=== PATIENT | female | born 1965 | race Caucasian/White ===

== ENCOUNTER → 2016-12-30 | Outpatient (CLI) | payer OTHER | LOC: CCC 11:04 | DX: E11.9 Type 2 diabetes mellitus without complications (principal); G62.9 Polyneuropathy, unspecified | CPT/HCPCS: 36415; 82607; 83036 ==

== ENCOUNTER 2017-01-09 16:52 | Emergency (ER) | payer SELFPAY ==
[2017-01-09] MEDS ORDERED: IBUPROFEN 800 MG TABLET PO ONE (17:19)
--- NOTE | 2017-01-09 17:19 | ER Document Report ---
ED Medical Screen (RME) - General Stated Complaint: FEVER Time seen by provider: 17:17 Mode of Arrival: Ambulatory Information source: Patient Notes: 80-year-old female presents to ED for a cyst on the mons pubis about 4 days. She was seen by [facility] today and had a temperature of 103. They sent her to the emergency room. She says the pain feels like something is ripping out her thigh muscle an electric shock all over. Her temperature in the RME is 101.2. States her last Tylenol was about 11:00. I have greeted and performed a rapid initial assessment of this patient. A comprehensive ED assessment and evaluation of the patient, analysis of test results and completion of medical decision making process will be conducted by an additional ED providers. TRAVEL OUTSIDE OF THE [place] IN LAST 30 DAYS: No - Related Data Allergies/Adverse Reactions: atorvastatin calcium [From Lipitor] Allergy (Mild, Verified 16 18:17) Muscle Aches rosuvastatin calcium [From Crestor] Allergy (Mild, Verified 10/10/16 18:17) Muscle Aches adhesive [Adhesive] Allergy (Verified 10/10/16 18:17) Past Medical History - Past Medical History Cardiac Medical History: Reports: Hx Hypercholesterolemia, Hx Hypertension Pulmonary Medical History: Reports: Hx Bronchitis Denies: Hx Tuberculosis Endocrine Medical History: Reports: Hx Diabetes Mellitus Type 2, Hx Hypothyroidism Renal/ Medical History: Reports: Hx Kidney Stones GI Medical History: Reports: Hx Gastroesophageal Reflux Disease Past Surgical History: Reports: Hx Cholecystectomy, Hx Hysterectomy, Hx Nose Surgery, Hx Tonsillectomy - Immunizations Hx Diphtheria, Pertussis, Tetanus Vaccination: Yes Physical Exam - Vital signs Vitals: Temp Pulse Resp BP Pulse Ox 101.2 F H 136 H 18 144/86 H 100 01/09/17 16:58 01/09/17 16:58 01/09/17 16:58 01/09/17 16:58 01/09/17 16:58 Course - Vital Signs Vital signs: Temp Pulse Resp BP Pulse Ox 101.2 F H 136 H 18 144/86 H 100 01/09/17 16:58 01/09/17 16:58 01/09/17 16:58 01/09/17 16:58 01/09/17 16:58
[2017-01-09] MEDS ORDERED: LIDOCAINE 1% INJ-PF (10 MG/ML) 30 ML SDV INJ ONE (19:30)
--- NOTE | 2017-01-09 20:17 | ER Document Report ---
ED General - General Chief Complaint: Fever Stated Complaint: FEVER Time seen by provider: 18:30 Mode of Arrival: Ambulatory Information source: Patient Notes: 51-year-old female who reports she's had drainage from anywhere swelling on her lower abdomen for the past 4 days. She reports prior history of abscesses in other locations and thinks this may be another one. She also reports fever to 103 today. Patient was initially seen at [facility] because of her fever was referred here. The patient also reports she has history diabetes and peripheral neuropathy and was placed on gabapentin approximately 2 weeks ago. She reports she was placed on a gradually increasing dose when she began taking to gabapentin 3 times a day she began having a sensation of electric shocks in her legs which became worse the longer she took the medicine. She denies any nausea or vomiting since she's been feeling well otherwise recently. She reports she has no pain in the area of abdominal swelling because that area is been some for many years that she attributes to her diabetes. Physical Exam: General: Alert, appears well. HEENT: Normocephalic. Atraumatic. PERRLA. Extraocular movements intact. Tympanic membranes and canals clear Oropharynx clear. Neck: Supple. Non-tender. Respiratory: No respiratory distress. Clear and equal breath sounds bilaterally. Cardiovascular: Tachycardic no murmur PMI not displaced Abdominal: Normal Inspection. Soft, non-tender. No distension. Normal Bowel Sounds. Patient has a 5 x 5 cm area of erythema and swelling in the lower abdomen involving her pannus with central discoloration about 2 cm across with what appears to been some recent drainage. There is also a 1 x 2 cm area of pale tissue in the area of drainage which is soft and mobile. exam normal external female genitalia. No vaginal bleeding or discharge present. Os is closed no cervical motion tenderness. No adnexal masses or tenderness. There is no communication of the abdominal wall mass with pelvic structures Back: Non-tender. No deformity or step off. Extremities: Moves all four extremities. Upper extremities: Normal inspection. Non-tender. Normal color. Normal ROM. Normal temperature. Lower extremities: Normal inspection. Non-tender. No edema. Normal color. Normal ROM. Normal temperature. 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 Normal Mood. Skin: Warm. Dry. Normal color. TRAVEL OUTSIDE OF THE [place] IN LAST 30 DAYS: No - Related Data Allergies/Adverse Reactions: atorvastatin calcium [From Lipitor] Allergy (Mild, Verified 01/09/17 17:21) Muscle Aches rosuvastatin calcium [From Crestor] Allergy (Mild, Verified 01/09/17 17:21) Muscle Aches adhesive [Adhesive] Allergy (Verified 01/09/17 17:21) Past Medical History - General Information source: Patient - Social History Smoking Status: Never Smoker Chew tobacco use (# tins/day): No Frequency of alcohol use: None Drug Abuse: None Family History: Reviewed & Not Pertinent Patient has suicidal ideation: No Patient has homicidal ideation: No - Past Medical History Cardiac Medical History: Reports: Hx Hypercholesterolemia, Hx Hypertension Pulmonary Medical History: Reports: Hx Bronchitis Denies: Hx Tuberculosis Endocrine Medical History: Reports: Hx Diabetes Mellitus Type 2, Hx Hypothyroidism Renal/ Medical History: Reports: Hx Kidney Stones. Denies: Hx Peritoneal Dialysis GI Medical History: Reports: Hx Gastroesophageal Reflux Disease Past Surgical History: Reports: Hx Cholecystectomy, Hx Hysterectomy, Hx Nose Surgery, Hx Orthopedic Surgery - right foot, Hx Tonsillectomy - Immunizations Hx Diphtheria, Pertussis, Tetanus Vaccination: Yes Hx Pneumococcal Vaccination: 10/27/05 Review of Systems - Review of Systems Constitutional: See HPI EENT: denies: Ear pain, Throat pain Cardiovascular: denies: Chest pain, Dyspnea, Syncope Respiratory: denies: Cough, Short of breath Gastrointestinal: denies: Abdominal pain, Diarrhea, Nausea, Vomiting Genitourinary: denies: Burning, Dysuria Female Genitourinary: denies: Vaginal discharge, Vaginal bleeding Musculoskeletal: denies: Back pain, Leg swelling Skin: See HPI Hematologic/Lymphatic: See HPI Neurological/Psychological: See HPI Physical Exam - Vital signs Vitals: Temp Pulse Resp BP Pulse Ox 101.2 F H 136 H 18 144/86 H 100 01/09/17 16:58 01/09/17 16:58 01/09/17 16:58 01/09/17 16:58 01/09/17 16:58 Course - Re-evaluation Re-evalutation: 01/09/17 20:20 #1 abdominal wall abscess. This drained easily believe this is a source for fever. She was placed on antibiotics and instructed return in 2 days for recheck and probable repacking. Not able to further assess the area of palish tissue on the inferior portion of the abscess area but it does not appear to be normal skin tissue. It only further evaluation can be done in the setting of abscess treatment I believe this should be reevaluated after treatment. #2 peripheral neuropathy. Patient reports worsening symptoms on the gabapentin and of instructed her to stop that - Vital Signs Vital signs: Temp Pulse Resp BP Pulse Ox 101.2 F H 136 H 18 144/86 H 100 01/09/17 16:58 01/09/17 16:58 01/09/17 16:58 01/09/17 16:58 01/09/17 16:58 Procedures - Incision and Drainage Medial Abdomen Time completed: 20:00 Type: Complex Anesthetic type: 1% Lidocaine mL's of anesthetic: 0 - patient is numbness area and did not require anesthesia Blade size: 11 I&D procedure: Betadine prep applied, Iodoform packing placed Incision Method: Incision made by scalpel Amount/type of drainage: 20 mL Notes: 01/09/17 20:19 With gentle palpation in the area of mixed purulent and bloody drainage was identified just above the area of palish discoloration tissue. It was made in this area and copious bloody and purulent material was expressed. Abscess cavity was explored with blunt dissection and multiple loculations opened. Iodoform gauze was placed. Patient tolerated procedure well with no complications Discharge - Discharge Clinical Impression: Abscess Peripheral neuropathy Qualifiers: Peripheral neuropathy type: polyneuropathy, unspecified Qualified Code(s): G62.9 - Polyneuropathy, unspecified Condition: Stable Disposition: HOME, SELF-CARE Instructions: Post Incision and Drainage Additional Instructions: Neuropathy Your symptoms are due to neuropathy. Neuropathy is nerve damage. There are many causes, including diabetes, immune disease, alcohol, blood vessel disease, and vitamin deficiency. The usual symptoms are pain and numbness. Neuropathy can occur anywhere, but it's most likely in the "longest" nerves. That's why the feet are most often affected. Sometimes the nerve damage can heal. But if the symptoms have lasted more than a few months, the damage is permanent. To avoid further damage, treat your underlying health problems carefully. If you have diabetes, keep the blood sugar as normal as possible. Avoid alcohol. Treat high blood pressure and high cholesterol. Treating chronic pain can be a problem. Obviously, you don't want to become addicted to pain medicine. Work closely with your doctor on pain management. Your options include antiinflammatory medicine, anti seizure medicine, antidepressants, and pain clinic management. Contact the doctor if there is a significant change. Your gabapentin may be making her symptoms worse. This is unusual but you should stop taking the gabapentin and your electrical shock sensations improve Abscess You have an abscess (boil). This a pus-forming infection, usually due to staph. Some boils may be left to drain on their own, but most require lancing. From the time the tender lump first appears, it may be three or four days before the abscess is ready to kadie. Local heat and rest help at this stage of treatment. An antibiotic may prevent spread of the infection. Once the abscess is opened, packing may be placed into it. This is done so pus is not sealed inside by premature closure of the cavity. The packing will be removed at your follow-up visit or you may be advised to remove it yourself at home. Sometimes this packing must be replaced a few times during healing. The wound will heal with surprisingly little scar. Depending on the size and location of an abscess, healing can take one to four weeks. You may shower and wash the area around the incision site two or three times a day. Antibiotics may be prescribed, but are usually not necessary after an abscess has been drained. If you develop fever, chilling, worsening pain, or increasing swelling in the area, call the doctor or return immediately. Come back to the emergency department in 2 days to have your packing removed and your abscess rechecked Prescriptions: Cephalexin Monohydrate [Keflex 500 mg Capsule] 500 mg PO QID #40 capsule Sulfamethoxazole/Trimethoprim [Bactrim Ds Tablet] 1 each PO BID #20 tablet Referrals: [facility] [Provider Group] - Follow up in 1 week
[2017-01-09 20:53] VITALS: BP 90/64
== END 2017-01-09 20:50 | disposition home or self-care (01) ==
LOC: ER 16:52
PROC: 0H97XZZ Drainage of Abdomen Skin, External Approach (ICD-10-PCS; principal; 2017-01-09)
DX: L02.211 Cutaneous abscess of abdominal wall (principal); G62.9 Polyneuropathy, unspecified; R50.9 Fever, unspecified; R10.30 Lower abdominal pain, unspecified; R00.0 Tachycardia, unspecified; E78.00 Pure hypercholesterolemia, unspecified; I10 Essential (primary) hypertension; E11.9 Type 2 diabetes mellitus without complications; E03.9 Hypothyroidism, unspecified; Z87.442 Personal history of urinary calculi; Z90.49 Acquired absence of other specified parts of digestive tract; Z90.710 Acquired absence of both cervix and uterus
CPT/HCPCS: 87210; 87804; 99283; A6266

== ENCOUNTER 2017-01-11 16:56 | Inpatient (IN) | payer SELFPAY ==
[2017-01-11] MEDS ORDERED: IBUPROFEN 800 MG TABLET PO ONE (17:13)
--- NOTE | 2017-01-11 17:13 | ER Document Report ---
ED Medical Screen (RME) - General Stated Complaint: WOUND CHECK Notes: Patient is a 51-year-old female presents emergency Department after being evaluated for an abscess on January 09. Patient states that she is here today for wound recheck. has been compliant with antibiotics. Has been taking Tylenol, last dose at noon I have greeted and performed a rapid initial assessment of this patient. A comprehensive ED assessment and evaluation of the patient, analysis of test results and completion of the medical decision making process will be conducted by additional ED providers. TRAVEL OUTSIDE OF THE [place] IN LAST 30 DAYS: No - Related Data Allergies/Adverse Reactions: atorvastatin calcium [From Lipitor] Allergy (Mild, Verified 01/09/17 17:21) Muscle Aches rosuvastatin calcium [From Crestor] Allergy (Mild, Verified 01/09/17 17:21) Muscle Aches adhesive [Adhesive] Allergy (Verified 01/09/17 17:21) Past Medical History - Past Medical History Cardiac Medical History: Reports: Hx Hypercholesterolemia, Hx Hypertension Pulmonary Medical History: Reports: Hx Bronchitis Denies: Hx Tuberculosis Endocrine Medical History: Reports: Hx Diabetes Mellitus Type 2, Hx Hypothyroidism Renal/ Medical History: Reports: Hx Kidney Stones. Denies: Hx Peritoneal Dialysis GI Medical History: Reports: Hx Gastroesophageal Reflux Disease Past Surgical History: Reports: Hx Cholecystectomy, Hx Hysterectomy, Hx Nose Surgery, Hx Orthopedic Surgery - right foot, Hx Tonsillectomy - Immunizations Hx Diphtheria, Pertussis, Tetanus Vaccination: Yes Physical Exam - Vital signs Vitals: Temp Pulse Resp BP Pulse Ox 102.4 F H 126 H 18 135/75 H 96 01/11/17 16:59 01/11/17 16:59 01/11/17 16:59 01/11/17 16:59 01/11/17 16:59 Course - Vital Signs Vital signs: Temp Pulse Resp BP Pulse Ox 102.4 F H 126 H 18 135/75 H 96 01/11/17 16:59 01/11/17 16:59 01/11/17 16:59 01/11/17 16:59 01/11/17 16:59
--- NOTE | 2017-01-11 18:07 | ER Document Report ---
ED General - General Chief Complaint: Fever Stated Complaint: WOUND CHECK Mode of Arrival: Ambulatory Information source: Patient Notes: Patient presents to the emergency department for packing removal from her abdominal abscess. Patient reports she received I&D on January 09. She was placed on Keflex and Septra. Patient presents today reporting she just doesn't feel good. Reports upper abdominal pain and bilateral flank pain. Fever noted of 102.4. pt with HR of 126. Pt reports her abdomen really doesn't hurt since she's been numb in that area for 21 years since she had surgery for tubal reversal. TRAVEL OUTSIDE OF THE [place] IN LAST 30 DAYS: No - HPI Onset: Other Onset/Duration: Persistent Quality of pain: Achy Severity: Severe Pain Level: 5 Associated symptoms: Fever, Other - bilateral flank pain, upper abdominal pain Exacerbated by: Denies Relieved by: Denies Similar symptoms previously: Yes Recently seen / treated by doctor: Yes - Related Data Allergies/Adverse Reactions: atorvastatin calcium [From Lipitor] Allergy (Mild, Verified 01/11/17 17:13) Muscle Aches rosuvastatin calcium [From Crestor] Allergy (Mild, Verified 01/11/17 17:13) Muscle Aches adhesive [Adhesive] Allergy (Verified 01/11/17 17:13) Past Medical History - General Information source: Patient Last Menstrual Period: hyster - Social History Smoking Status: Current Every Day Smoker Cigarette use (# per day): Yes Chew tobacco use (# tins/day): No Frequency of alcohol use: Occasional Drug Abuse: None Family History: Reviewed & Not Pertinent Patient has suicidal ideation: No Patient has homicidal ideation: No - Past Medical History Cardiac Medical History: Reports: Hx Hypercholesterolemia, Hx Hypertension Pulmonary Medical History: Reports: Hx Bronchitis Denies: Hx Tuberculosis Endocrine Medical History: Reports: Hx Diabetes Mellitus Type 2, Hx Hypothyroidism Renal/ Medical History: Reports: Hx Kidney Stones. Denies: Hx Peritoneal Dialysis GI Medical History: Reports: Hx Gastroesophageal Reflux Disease Past Surgical History: Reports: Hx Cholecystectomy, Hx Hysterectomy, Hx Nose Surgery, Hx Orthopedic Surgery - right foot, Hx Tonsillectomy - Immunizations Hx Diphtheria, Pertussis, Tetanus Vaccination: Yes Hx Pneumococcal Vaccination: 10/27/05 Review of Systems - Review of Systems Notes: Review HPI for review of systems., All other systems negative Physical Exam - Vital signs Vitals: Temp Pulse Resp BP Pulse Ox 102.4 F H 126 H 18 135/75 H 96 01/11/17 16:59 01/11/17 16:59 01/11/17 16:59 01/11/17 16:59 01/11/17 16:59 - Notes Notes: PHYSICAL EXAMINATION: GENERAL: Well-appearing and in no acute distress nontoxic looking HEAD: Atraumatic, normocephalic. EYES: Pupils equal round , extraocular movements intact, sclera anicteric, conjunctiva are normal. ENT: nares patent, Moist mucous membranes. NECK: Normal range of motion, supple without lymphadenopathy LUNGS: CTAB and equal. No wheezes rales or rhonchi. HEART: tachy ABDOMEN: Soft, c/o upper abdominal tenderness, large abscess noted, packing removed, covered with purulent discharge, incision site open surrounded by erythema, no warmth BACK: C/O Bilateral flank pain EXTREMITIES: Normal range of motion, no pitting edema. No cyanosis. NEUROLOGICAL: Cranial nerves grossly intact. Normal sensory/motor exams. PSYCH: Normal mood, normal affect. SKIN: Warm, Dry, normal turgor, no rashes or lesions noted Course - Re-evaluation Re-evalutation: 01/11/17 19:45 a large amount of packing coated in thick discharge removed from abdomen. area with erythema, firm. Leukocytosis of 18 noted, no shift. I have consulted the attending provider dr romero per [facility] guidelines 01/11/17 20:07 Dr Kapadia is in the emergency department, was consulted, he will be be over to see the patient 01/11/17 20:31 dr kapadia in to assess patient. pt to be admitted. - Vital Signs Vital signs: Temp Pulse Resp BP Pulse Ox 99.1 F 99 18 112/69 98 01/11/17 20:12 01/11/17 20:12 01/11/17 20:12 01/11/17 20:12 01/11/17 20:12 - Laboratory Result Diagrams: 01/11/17 18:42 01/11/17 18:42 Laboratory results interpreted by me: 01/11/17 01/11/17 01/11/17 18:26 18:42 18:42 WBC 18.1 H Absolute Neutrophils 13.2 H Absolute Monocytes 1.8 H Sodium 135.0 L Chloride 95 L Glucose 266 H POC Glucose Urine Protein 100 H Urine Glucose (UA) >=500 H Urine Ketones TRACE H Urine Urobilinogen 4.0 H Ur Leukocyte Esterase TRACE H Urine Ascorbic Acid 20 H 01/11/17 20:19 WBC Absolute Neutrophils Absolute Monocytes Sodium Chloride Glucose POC Glucose 250 H Urine Protein Urine Glucose (UA) Urine Ketones Urine Urobilinogen Ur Leukocyte Esterase Urine Ascorbic Acid Discharge - Discharge Clinical Impression: Abscess Condition: Stable Disposition: ADMITTED INPATIENT Admitting Provider: Surgicalist - dr kapadia
[2017-01-11 18:47] LABS: APPEARANCE,URINE SLIGHTLY-CLOUDY; BILIRUBIN,URINE NEGATIVE (NEGATIVE); GLUCOSE, URINE >=500 mg/dL (NEGATIVE); KETONES,URINE TRACE mg/dL (NEGATIVE); LEUKOCYTE ESTERASE,URINE TRACE (NEGATIVE); NITRITE,URINE NEGATIVE (NEGATIVE); PROTEIN,URINE 100 mg/dL (NEGATIVE); URINE SPECIFIC GRAVITY 1.031
[2017-01-11 18:57] LABS: ABSOLUTE BASOPHILS # (AUTO) 0.2 10^3/uL (0.0-0.2); ABSOLUTE EOSINOPHILS # (AUTO) 0.2 10^3/uL (0.0-0.6); ABSOLUTE LYMPHOCYTES (AUTO) 2.7 10^3/uL (0.5-4.7); ABSOLUTE MONOCYTES (AUTO) 1.8 10^3/uL (0.1-1.4); ABSOLUTE NEUT (AUTO) 13.2 10^3/uL (1.7-8.2); BASOPHILS % (AUTO) 0.9 % (0-2); EOSINOPHILS % (AUTO) 1.2 % (0-6); HEMATOCRIT 36.2 % (36.0-47.0); HEMOGLOBIN 12.5 g/dL (12.0-15.5); HGB HCT DIFFERENCE 1.3; LYMPHOCYTES % (AUTO) 14.8 % (13-45); MEAN CORPUSCULAR HEMOGLOBIN 29.5 pg (27.0-33.4); MEAN CORPUSCULAR HGB CONC 34.6 g/dL (32.0-36.0); MEAN CORPUSCULAR VOLUME 85 fl (80-97); MONOCYTES % (AUTO) 10.2 % (3-13); RED BLOOD COUNT 4.24 10^6/uL (3.72-5.28); RED CELL DISTRIBUTION WIDTH 12.5 % (11.5-14.0); SEGMENTED NEUTROPHILS % (AUTO) 72.9 % (42-78); WHITE BLOOD COUNT 18.1 10^3/uL (4.0-10.5)
[2017-01-11 19:18] LABS: ALANINE AMINOTRANSFERASE 26 U/L (9-52); ALBUMIN 3.7 g/dL (3.5-5.0); ALKALINE PHOSPHATASE 123 U/L (38-126); ANION GAP 16 (5-19); ASPARTATE AMINO TRANSFERASE 15 U/L (14-36); BILIRUBIN,TOTAL 0.8 mg/dL (0.2-1.3); BLOOD UREA NITROGEN 14 mg/dL (7-20); CALCIUM 9.2 mg/dL (8.4-10.2); CARBON DIOXIDE 24 mmol/L (22-30); CHLORIDE 95 mmol/L (98-107); CREATININE RESULT 0.53 mg/dL (0.52-1.25); GLUCOSE 266 mg/dL (75-110); LIPASE 88.6 U/L (23-300); POTASSIUM 3.7 mmol/L (3.6-5.0)
[2017-01-11] MEDS ORDERED: OXYCODONE-ACETAMINOPHEN 5-325 MG TABLET PO ONE (20:07)
[2017-01-11] MEDS ORDERED: NORMAL SALINE 1000 ML 1,000 ML IV ONE (20:31)
--- NOTE | 2017-01-11 20:45 | PDOC H&P ---
History of Present Illness Patient complains of: Persisting drainage from abdominal wall wound, fever and lethargy History of Present Illness: VIRA COBURN is a 51 year old female who presents to the emergency department via ground rescue to [facility] 2 days after having I&D of an abdominal wall pannicular infection drained in the emergency department. He went home with packing which has not been changed in 48 hours. She was sent home on Keflex and Septra. She feels weak, tired, and anorectic. Her packing was removed by the nurse practitioner. Because of persisting infection in the abdominal wall, surgery was consulted and she was advised admission. Past Medical History Cardiac Medical History: Reports: Hyperlipidema, Hypertension Pulmonary Medical History: Reports: Bronchitis Denies: Tuberculosis Endocrine Medical History: Reports: Diabetes Mellitus Type 2, Hypothyroidism GI Medical History: Reports: Gastroesophageal Reflux Disease Past Surgical History Past Surgical History: Reports: Cholecystectomy, Hysterectomy, Orthopedic Surgery - right foot, Tonsillectomy, Other - I&D of pannicular abscess 48 hours ago Social History Smoking Status: Current Every Day Smoker Frequency of Alcohol Use: Rare Hx Recreational Drug Use: No Drugs: None Hx Prescription Drug Abuse: No Family History Family History: Reviewed & Not Pertinent Parental Family History Reviewed: Yes Children Family History Reviewed: Yes Sibling(s) Family History Reviewed.: Yes Medication/Allergy Home Medications: Levothyroxine Sodium [Synthroid 0.1 mg Tablet] 100 mcg PO DAILY 08/02/13 Losartan Potassium 100 mg PO DAILY 08/06/13 Insulin Regular, Human [Humulin R (Pyxis) Insulin 100 Unit/ml 3Ml] 0 unit SUBCUT BIDACBS #10 ml 11/22/15 Losartan Potassium [Cozaar 100 mg Tablet] 100 mg PO DAILY #30 tablet 11/22/15 Metformin HCl [Glucophage] 1,000 mg PO BID #60 tablet 11/22/15 NPH, Human Insulin Isophane [Humulin N (NPH) Insulin 100 unit/mL] 40 unit SUBCUT BIDACBS #1 vial 11/22/15 Lidocaine/Menthol [Lidopatch] 1 patch TP DAILY PRN #5 adh..patch 10/10/16 Methocarbamol [Robaxin 500 mg Tablet] 500 mg PO Q8HP PRN #10 tablet 10/10/16 Naproxen 500 mg PO BIDP PRN #10 tablet 10/10/16 Cephalexin Monohydrate [Keflex 500 mg Capsule] 500 mg PO QID #40 capsule Sulfamethoxazole/Trimethoprim [Bactrim Ds Tablet] 1 each PO BID #20 tablet 01/09 Allergies/Adverse Reactions: atorvastatin calcium [From Lipitor] Allergy (Mild, Verified 01/11/17 17:13) Muscle Aches rosuvastatin calcium [From Crestor] Allergy (Mild, Verified 01/11/17 17:13) Muscle Aches adhesive [Adhesive] Allergy (Verified 01/11/17 17:13) Review of Systems Constitutional: PRESENT: fever(s), headache(s) Eyes: PRESENT: visual disturbances Cardiovascular: ABSENT: chest pain, dyspnea on exertion, edema, orthropnea, palpitations Respiratory: ABSENT: cough, hemoptysis Gastrointestinal: ABSENT: abdominal pain, constipation, diarrhea, hematemesis, hematochezia, nausea, vomiting Physical Exam Vital Signs: Temp Pulse Resp BP Pulse Ox 99.1 F 99 18 112/69 98 01/11/17 20:12 01/11/17 20:12 01/11/17 20:12 01/11/17 20:12 01/11/17 20:12 Intake & Output 01/10/17 01/11/17 01/12/17 06:59 06:59 06:59 Weight 77.8 kg General appearance: PRESENT: mild distress Head exam: PRESENT: normocephalic Eye exam: PRESENT: EOMI Ear exam: PRESENT: normal external ear exam Mouth exam: PRESENT: dry mucosa Neck exam: PRESENT: full ROM Cardiovascular exam: PRESENT: RRR Pulses: PRESENT: normal carotid pulses, normal radial pulses GI/Abdominal exam: PRESENT: other - Chronic tissue, abscess incompletely drained , and cellulitis localized to the central panniculus Extremities exam: PRESENT: full ROM Musculoskeletal exam: PRESENT: full ROM Results Laboratory Results: 01/11/17 18:42 01/11/17 18:42 01/11/17 01/11/17 01/11/17 18:26 18:42 18:42 WBC 18.1 H RBC 4.24 Hgb 12.5 Hct 36.2 MCV 85 MCH 29.5 MCHC 34.6 RDW 12.5 Plt Count 370 Seg Neutrophils % 72.9 Lymphocytes % 14.8 Monocytes % 10.2 Eosinophils % 1.2 Basophils % 0.9 Absolute Neutrophils 13.2 H Absolute Lymphocytes 2.7 Absolute Monocytes 1.8 H Absolute Eosinophils 0.2 Absolute Basophils 0.2 Sodium 135.0 L Potassium 3.7 Chloride 95 L Carbon Dioxide 24 Anion Gap 16 BUN 14 Creatinine 0.53 Est GFR ( Amer) > 60 Est GFR (Non-Af Amer) > 60 Glucose 266 H Lactic Acid Calcium 9.2 Total Bilirubin 0.8 AST 15 ALT 26 Alkaline Phosphatase 123 Total Protein 7.0 Albumin 3.7 Lipase 88.6 Urine Color YELLOW Urine Appearance SLIGHTLY-CLOUDY Urine pH 5.0 Ur Specific Sherrill 1.031 Urine Protein 100 H Urine Glucose (UA) >=500 H Urine Ketones TRACE H Urine Blood NEGATIVE Urine Nitrite NEGATIVE Ur Leukocyte Esterase TRACE H Urine WBC (Auto) 5 Urine RBC (Auto) 19 01/11/17 18:42 WBC RBC Hgb Hct MCV MCH MCHC RDW Plt Count Seg Neutrophils % Lymphocytes % Monocytes % Eosinophils % Basophils % Absolute Neutrophils Absolute Lymphocytes Absolute Monocytes Absolute Eosinophils Absolute Basophils Sodium Potassium Chloride Carbon Dioxide Anion Gap BUN Creatinine Est GFR ( Amer) Est GFR (Non-Af Amer) Glucose Lactic Acid 1.3 Calcium Total Bilirubin AST ALT Alkaline Phosphatase Total Protein Albumin Lipase Urine Color Urine Appearance Urine pH Ur Specific Sherrill Urine Protein Urine Glucose (UA) Urine Ketones Urine Blood Urine Nitrite Ur Leukocyte Esterase Urine WBC (Auto) Urine RBC (Auto) Assessment & Plan - Diagnosis (1) Abscess Is this a current diagnosis for this admission?: YesPlan: Of the abdominal wall, status post I&D 48 hours ago, failed outpatient management Plan : Admit, IV fluids, antibiotics, operating room for complete drainage (2) Peripheral neuropathy Qualifiers: Peripheral neuropathy type: polyneuropathy, unspecified Qualified Code( s): G62.9 - Polyneuropathy, unspecified (3) Hyperglycemia Is this a current diagnosis for this admission?: YesPlan: Fluid resuscitation, IV insulin Will have hospitalist assisted in management (4) Sepsis Is this a current diagnosis for this admission?: YesPlan: Secondary to tachycardia, leukocytosis, and fever and very to abdominal wall infection in diabetic - Time Time Spent: 30 to 50 Minutes Critical Time spent with patient: 15-24 minutes Anticipated discharge: Home - Inpatient Certification Based on my medical assessment, after consideration of the patient's comorbidities, presenting symptoms, or acuity I expect that the services needed warrant INPATIENT care.: Yes I certify that my determination is in accordance with my understanding of Medicare's requirements for reasonable and necessary INPATIENT services [42 CFR 412.3e].: Yes Medical Necessity: Need For IV Fluids, Need for Pain Control, Need for IV Antibiotics, Need for Surgery
[2017-01-11] MEDS ORDERED: MORPHINE SULFATE 10 MG/ML INJ IV PRN (20:47)
[2017-01-11] MEDS ORDERED: ONDANSETRON HCL INJ/PF 4 MG/2 ML SDV IV PRN (20:47)
[2017-01-11] MEDS ORDERED: DEXTROSE 40% GEL 15 GM TUBE PO PRN ×2 (20:49)
[2017-01-11] MEDS ORDERED: DEXTROSE 50%-WATER 25 GM/50 ML DISP.SYRIN IV PRN ×2 (20:49)
[2017-01-11] MEDS ORDERED: GLUCAGON,HUMAN RECOMB 1 MG INJ IM PRN (20:49)
[2017-01-11] MEDS ORDERED: ERTAPENEM SODIUM 1 GM in NORMAL SALINE 50 ML IV ONE ×2 (21:15→21:30)
[2017-01-11] MEDS ORDERED: ERTAPENEM SODIUM INJ 1 GM VIAL ONE (21:42)
[2017-01-11] MEDS: NORMAL SALINE 1000 ML 1,000 ML IV PRN (21:47)
[2017-01-11] MEDS ORDERED: ERTAPENEM SODIUM INJ 1 GM VIAL IV PRN (21:53)
[2017-01-12] MEDS ORDERED: INFLUENZA ADLT QUAD (36MOS+) 2016-17 VAC 0.5 ML SYR IM PRN (00:31)
[2017-01-12] MEDS: INSULIN REG, HUMAN 100 UNIT/ML 3 ML VIAL (PYX) SUBCUT PRN ×4 (06:06→22:03)
[2017-01-12] MEDS ORDERED: EPHEDRINE SULFATE INJ 50 MG/1 ML AMPULE ONE (07:27)
[2017-01-12] MEDS ORDERED: FENTANYL CITRATE INJ/PF 100 MCG/2 ML AMPUL ONE (07:27)
[2017-01-12] MEDS ORDERED: MIDAZOLAM 2 MG/2 ML INJ ONE (07:27)
[2017-01-12] MEDS ORDERED: PROPOFOL INJ 200 MG/20 ML VIAL IV ONE (07:28)
[2017-01-12] MEDS ORDERED: OXYCODONE-ACETAMINOPHEN 5-325 MG TABLET PO PRN ×2 (08:06)
[2017-01-12] MEDS ORDERED: MORPHINE SULFATE 10 MG/ML INJ IV PRN ×2 (08:06→08:35)
[2017-01-12] MEDS ORDERED: MEPERIDINE HCL/PF INJ 25 MG/1 ML DISP.SYRIN IV PRN (08:06)
[2017-01-12] MEDS ORDERED: DIPHENHYDRAMINE HCL 50 MG/ML VIAL IV PRN (08:06)
[2017-01-12] MEDS ORDERED: PROMETHAZINE HCL INJ 25 MG/1 ML VIAL IV PRN ×2 (08:06)
[2017-01-12] MEDS ORDERED: FENTANYL CITRATE INJ/PF 100 MCG/2 ML AMPUL IV PRN ×3 (08:06)
[2017-01-12] MEDS ORDERED: ONDANSETRON HCL INJ/PF 4 MG/2 ML SDV IV PRN ×2 (08:35→08:36)
[2017-01-12] MEDS ORDERED: DOCUSATE SODIUM 100 MG CAPSULE PO PRN (08:36)
--- NOTE | 2017-01-12 08:43 | Operative Report ---
Operative Report DATE OF SURGERY: 01/12/17 PREOPERATIVE DIAGNOSIS: 1. Panniculitis with deep soft tissue infection involving subcutaneous tissue POSTOPERATIVE DIAGNOSIS: Same OPERATION: Extensive debridement of abdominal wall infection involving deep subcutaneous tissue SURGEON: KELLEY HENNING ANESTHESIA: LMAC TISSUE REMOVED OR ALTERED: Skin and subcutaneous tissue COMPLICATIONS: None ESTIMATED BLOOD LOSS: 25 mL INTRAOPERATIVE FINDINGS: See below PROCEDURE: Patient was taken to the preoperative holding area the main operating room where anesthesia was induced. She is placed supine position and abdomen exposed , prepped with Betadine. Surgical plan on surgical time out conducted. Findings are significant for a central, infraumbilical abscess involving the skin and subcutaneous tissue. The skin was actually necrotic so a 4 cm diameter complete thickness debridement of the skin was performed. We then debrided using a combination of blunt and sharp dissection as well as electrocautery an extensive amount of subcutaneous tissue going down to the fascia. This extended approximately 9-10 cm laterally to the patient's right and left as well as superiorly approximately 8 cm. Inferiorly the debridement extended proximally 4 cm. The fascia was intact. The infection was consistent with MRSA. Tissue was very woody. Hemostasis was achieved with cautery. The undermined skin flaps were viable so no further debridement of the skin was undertaken. The entire subcutaneous pocket was packed with iodoform Kerlix 1. Overlying dry 4 x 4's applied. Patient tolerated the procedure well and was taken to the recovery room in stable condition.
[2017-01-12] MEDS ORDERED: LIDOCAINE 2% INJ-PF (20 MG/ML) 10 ML AMPUL ONE (11:35)
[2017-01-12] MEDS ORDERED: KETOROLAC TROMETHAMINE 60 MG/2 ML SDV ONE (11:35)
[2017-01-12] MEDS ORDERED: ONDANSETRON HCL INJ/PF 4 MG/2 ML SDV ONE (11:35)
[2017-01-12] MEDS: OXYCODONE-ACETAMINOPHEN 5-325 MG TABLET PO PRN ×3 (12:38→22:02)
--- NOTE | 2017-01-12 13:08 | PDOC CONSULTATION ---
Consultation Consult Date: 01/12/17 Attending physician:: KELLEY HENNING Consult reason:: Management of diabetes History of Present Illness Admission Date/PCP: 01/11/17 20:45 Patient complains of: Pain in her panniculus History of Present Illness: VIRA COBURN is a 51 year old female who presented to emergency room with a panniculitis and abscess. Patient had an I&D of this and was sent home. She came back after 48 hours and she was having nausea and unable to keep medication down. The patient then underwent an I&D by general surgery without difficulty. Medicine service has been consulted for management of her diabetes. Past Medical History Cardiac Medical History: Reports: Hyperlipidema, Hypertension Pulmonary Medical History: Reports: Bronchitis Denies: Tuberculosis Endocrine Medical History: Reports: Diabetes Mellitus Type 2, Hypothyroidism Malignancy Medical History: Reports: None GI Medical History: Reports: Gastroesophageal Reflux Disease Psychiatric Medical History: Reports: None Hematology: Reports: None Past Surgical History Past Surgical History: Reports: Cholecystectomy, Hysterectomy, Orthopedic Surgery - right foot, Tonsillectomy, Other - I&D of pannicular abscess 48 hours ago Social History Information Source: Patient Smoking Status: Current Every Day Smoker Frequency of Alcohol Use: Rare Hx Recreational Drug Use: No Drugs: None Hx Prescription Drug Abuse: No - Advance Directive Resuscitation Status: Full Code Family History Family History: CVA Parental Family History Reviewed: Yes Children Family History Reviewed: No Sibling(s) Family History Reviewed.: No Medication/Allergy Home Medications: Losartan Potassium [Cozaar 100 mg Tablet] 100 mg PO DAILY #30 tablet 11/22/15 Metformin HCl [Glucophage] 1,000 mg PO BID #60 tablet 11/22/15 Cephalexin Monohydrate [Keflex 500 mg Capsule] 500 mg PO QID #40 capsule Sulfamethoxazole/Trimethoprim [Bactrim Ds Tablet] 1 each PO BID #20 tablet 01/09 Aspirin [Aspirin EC] 81 mg PO DAILY 01/12/17 Gabapentin [Neurontin 300 mg Capsule] 300 mg PO TID 01/12/17 Glipizide [Glucotrol 10 mg Tablet] 10 mg PO DAILY 01/12/17 Insulin Detemir [Levemir Flextouch] 30 unit SQ QAM 01/12/17 Insulin Detemir [Levemir Flextouch] 50 units SUBCUT QHS 01/12/17 Allergies/Adverse Reactions: atorvastatin calcium [From Lipitor] Allergy (Mild, Verified 01/11/17 17:13) Muscle Aches rosuvastatin calcium [From Crestor] Allergy (Mild, Verified 01/11/17 17:13) Muscle Aches adhesive [Adhesive] Allergy (Verified 01/11/17 17:13) Review of Systems Constitutional: PRESENT: chills, fever(s). ABSENT: weight gain, weight loss Eyes: ABSENT: visual disturbances Ears: ABSENT: hearing changes Cardiovascular: ABSENT: chest pain, dyspnea on exertion, edema, orthropnea, palpitations Respiratory: ABSENT: cough, hemoptysis Gastrointestinal: PRESENT: abdominal pain - Pain over panniculitis. ABSENT: constipation, diarrhea, hematemesis, hematochezia, nausea, vomiting Genitourinary: ABSENT: dysuria, hematuria Musculoskeletal: ABSENT: joint swelling Integumentary: PRESENT: other - Panniculitis Neurological: ABSENT: abnormal gait, abnormal speech, confusion, dizziness, focal weakness, syncope Psychiatric: ABSENT: anxiety, depression Endocrine: ABSENT: cold intolerance, heat intolerance, polydipsia, polyuria Hematologic/Lymphatic: ABSENT: easy bleeding, easy bruising Physical Exam Vital Signs: Temp Pulse Resp BP Pulse Ox 98.1 F 85 17 95/49 L 99 01/12/17 11:05 01/12/17 11:05 01/12/17 11:05 01/12/17 11:05 01/12/17 11:05 Intake & Output 01/11/17 01/12/17 01/13/17 06:59 06:59 06:59 Intake Total 1750 1050 Output Total 255 Balance 1750 795 Weight 76.8 kg General appearance: PRESENT: no acute distress, well-developed, well-nourished Head exam: PRESENT: atraumatic, normocephalic Eye exam: PRESENT: conjunctiva pink, EOMI, PERRLA. ABSENT: scleral icterus Ear exam: PRESENT: normal external ear exam Mouth exam: PRESENT: moist, tongue midline Neck exam: ABSENT: carotid bruit, JVD, lymphadenopathy, thyromegaly Respiratory exam: PRESENT: clear to auscultation david. ABSENT: rales, rhonchi, wheezes Cardiovascular exam: PRESENT: RRR. ABSENT: diastolic murmur, rubs, systolic murmur GI/Abdominal exam: PRESENT: normal bowel sounds, soft, tenderness - Tender over the panniculus. ABSENT: distended, guarding, mass, organolmegaly, rebound Rectal exam: PRESENT: deferred Extremities exam: ABSENT: calf tenderness, clubbing, pedal edema Neurological exam: PRESENT: alert, awake, oriented to person, oriented to place , oriented to time, oriented to situation, CN II-XII grossly intact. ABSENT: motor sensory deficit Psychiatric exam: PRESENT: appropriate affect Skin exam: PRESENT: other - Dressing in place over the panniculitis I&D site Assessment & Plan - Diagnosis (1) Abscess Is this a current diagnosis for this admission?: YesPlan: Has had an I&D of her pannicular abscess (2) Diabetes mellitus Is this a current diagnosis for this admission?: YesPlan: Will hold oral agents and cover with Levemir and sliding scale insulin. (3) Hypertension Is this a current diagnosis for this admission?: YesPlan: Continue with losartan (4) Hypothyroid Qualifiers: Hypothyroidism type: unspecified Qualified Code(s): E03.9 - Hypothyroidism, unspecified Is this a current diagnosis for this admission?: YesPlan: Continue with Synthroid (5) Peripheral neuropathy Qualifiers: Peripheral neuropathy type: polyneuropathy, unspecified Qualified Code( s): G62.9 - Polyneuropathy, unspecified Is this a current diagnosis for this admission?: Yes - Time Time Spent: 50 to 70 Minutes - Inpatient Certification Medical Necessity: Need Close Monitoring Due to Risk of Patient Decompensation
[2017-01-12] MEDS ORDERED: LOSARTAN POTASSIUM 50 MG TABLET PO ONE (14:00)
[2017-01-12] MEDS: ERTAPENEM SODIUM 1 GM in NORMAL SALINE 50 ML IV SCH (17:01)
[2017-01-12] MEDS: INSULIN DETEMIR 100 UNIT/ML 3 ML PEN SUBCUT SCH (22:02)
[2017-01-13] MEDS ORDERED: INSULIN DETEMIR 100 UNIT/ML 3 ML PEN SUBCUT SCH (08:00)
[2017-01-13] MEDS: INSULIN DETEMIR 100 UNIT/ML 3 ML PEN SUBCUT SCH ×2 (08:17→21:33)
[2017-01-13] MEDS: OXYCODONE-ACETAMINOPHEN 5-325 MG TABLET PO PRN ×3 (08:24→21:35)
--- NOTE | 2017-01-13 09:06 | PDOC PROGRESS REPORT ---
Subjective Progress Note for:: 01/13/17 Subjective:: No new complaints. Patient has numbness of the operative site which is chronic Physical Exam Vital Signs: Temp Pulse Resp BP Pulse Ox 100.5 F H 92 16 132/70 H 96 01/13/17 07:47 01/13/17 07:47 01/13/17 07:47 01/13/17 07:47 01/13/17 07:47 Intake & Output 01/12/17 01/13/17 01/14/17 06:59 06:59 06:59 Intake Total 1750 4225 Output Total 255 Balance 1750 3970 Weight 76.8 kg 76.8 kg General appearance: PRESENT: no acute distress GI/Abdominal exam: PRESENT: other - Packing removed at bedside; tolerated well; no foul smell or active drainage. No progression of cellulitis Assessment & Plan - Diagnosis (1) Abscess Is this a current diagnosis for this admission?: YesPlan: 1. Patient is one day status post operative debridement of anterior abdominal wall, and packing. She is growing Escherichia coli. Antibiotics are appropriate; blood sugar still elevated. Plan: 1. Get patient to shower 2. Apply wound VAC, orders activated. (2) Peripheral neuropathy Qualifiers: Peripheral neuropathy type: polyneuropathy, unspecified Qualified Code( s): G62.9 - Polyneuropathy, unspecified Is this a current diagnosis for this admission?: Yes (3) Hyperglycemia Is this a current diagnosis for this admission?: Yes (4) Sepsis Is this a current diagnosis for this admission?: Yes - Time Time Spent with patient: Less than 15 minutes
[2017-01-13] MEDS: ASPIRIN 81 MG TABLET, ENT COATED PO SCH (09:45)
[2017-01-13] MEDS: LEVOTHYROXINE SODIUM 0.1 MG TABLET PO SCH (09:46)
[2017-01-13] MEDS: LOSARTAN POTASSIUM 50 MG TABLET PO SCH (09:46)
--- NOTE | 2017-01-13 11:23 | PDOC PROGRESS REPORT ---
Subjective Progress Note for:: 01/13/17 Subjective:: Patient reports pain in her abdomen after having the dressing changed. Physical Exam Vital Signs: Temp Pulse Resp BP Pulse Ox 100.5 F H 92 16 132/70 H 96 01/13/17 07:47 01/13/17 07:47 01/13/17 07:47 01/13/17 07:47 01/13/17 07:47 Intake & Output 01/12/17 01/13/17 01/14/17 06:59 06:59 06:59 Intake Total 1750 4225 Output Total 255 Balance 1750 3970 Weight 76.8 kg 76.8 kg General appearance: PRESENT: no acute distress Eye exam: PRESENT: conjunctiva pink. ABSENT: scleral icterus Ear exam: PRESENT: normal external ear exam Mouth exam: PRESENT: moist, tongue midline Neck exam: ABSENT: JVD Respiratory exam: PRESENT: clear to auscultation david. ABSENT: rales, rhonchi, wheezes Cardiovascular exam: PRESENT: RRR. ABSENT: diastolic murmur, rubs, systolic murmur GI/Abdominal exam: PRESENT: normal bowel sounds, soft, tenderness - Tenderness over her panniculitis, other - Dressing in place.. ABSENT: distended, guarding , mass, organolmegaly, rebound Extremities exam: ABSENT: calf tenderness, clubbing, pedal edema Neurological exam: PRESENT: alert, awake, oriented to person, oriented to place , oriented to time, oriented to situation, CN II-XII grossly intact. ABSENT: motor sensory deficit Psychiatric exam: PRESENT: appropriate affect Skin exam: PRESENT: other - Dressing in place over her panniculitis surgical wound. Assessment & Plan - Diagnosis (1) Abscess Is this a current diagnosis for this admission?: YesPlan: Has had an I&D of her pannicular abscess. Currently is on imipenem. (2) Diabetes mellitus Is this a current diagnosis for this admission?: YesPlan: Will hold oral agents and cover with Levemir and sliding scale insulin. We will increase the patient's a.m. Levemir dose from 30-40 units daily. (3) Hypertension Is this a current diagnosis for this admission?: YesPlan: Continue with losartan (4) Hypothyroid Qualifiers: Hypothyroidism type: unspecified Qualified Code(s): E03.9 - Hypothyroidism, unspecified Is this a current diagnosis for this admission?: YesPlan: Continue with Synthroid (5) Peripheral neuropathy Qualifiers: Peripheral neuropathy type: polyneuropathy, unspecified Qualified Code( s): G62.9 - Polyneuropathy, unspecified Is this a current diagnosis for this admission?: Yes - Time Time Spent with patient: 25-34 minutes - Inpatient Certification Medical Necessity: Need for IV Antibiotics
[2017-01-13] MEDS: INSULIN REG, HUMAN 100 UNIT/ML 3 ML VIAL (PYX) SUBCUT PRN ×2 (13:14→17:18)
[2017-01-13] MEDS: ERTAPENEM SODIUM 1 GM in NORMAL SALINE 50 ML IV SCH (17:06)
[2017-01-13] MEDS: NORMAL SALINE 1000 ML 1,000 ML IV PRN (20:58)
[2017-01-14] MEDS: NORMAL SALINE 1000 ML 1,000 ML IV PRN ×2 (01:29→05:54)
[2017-01-14] MEDS: OXYCODONE-ACETAMINOPHEN 5-325 MG TABLET PO PRN ×4 (01:40→23:36)
[2017-01-14 05:51] LABS: MEAN CORPUSCULAR VOLUME 86 fl (80-97)
[2017-01-14 06:03] LABS: ABSOLUTE BASOPHILS # (AUTO) 0.1 10^3/uL (0.0-0.2); ABSOLUTE EOSINOPHILS # (AUTO) 0.3 10^3/uL (0.0-0.6); ABSOLUTE LYMPHOCYTES (AUTO) 1.8 10^3/uL (0.5-4.7); ABSOLUTE MONOCYTES (AUTO) 1.1 10^3/uL (0.1-1.4); ABSOLUTE NEUT (AUTO) 6.1 10^3/uL (1.7-8.2); BASOPHILS % (AUTO) 0.6 % (0-2); EOSINOPHILS % (AUTO) 3.3 % (0-6); HEMATOCRIT 28.7 % (36.0-47.0); HEMOGLOBIN 9.7 g/dL (12.0-15.5); HGB HCT DIFFERENCE 0.4; LYMPHOCYTES % (AUTO) 19.1 % (13-45); MEAN CORPUSCULAR HEMOGLOBIN 29.3 pg (27.0-33.4); MONOCYTES % (AUTO) 11.4 % (3-13); RED BLOOD COUNT 3.32 10^6/uL (3.72-5.28); RED CELL DISTRIBUTION WIDTH 12.4 % (11.5-14.0); SEGMENTED NEUTROPHILS % (AUTO) 65.6 % (42-78); WHITE BLOOD COUNT 9.3 10^3/uL (4.0-10.5)
[2017-01-14 06:11] LABS: ANION GAP 13 (5-19); BLOOD UREA NITROGEN 6 mg/dL (7-20); CALCIUM 7.9 mg/dL (8.4-10.2); CARBON DIOXIDE 20 mmol/L (22-30); CHLORIDE 110 mmol/L (98-107); CREATININE RESULT 0.32 mg/dL (0.52-1.25); GLUCOSE 87 mg/dL (75-110); POTASSIUM 3.5 mmol/L (3.6-5.0); SODIUM 143.4 mmol/L (137-145)
[2017-01-14] MEDS ORDERED: CYCLOBENZAPRINE HCL 10 MG TABLET PO PRN (08:02)
[2017-01-14] MEDS ORDERED: NORMAL SALINE 1000 ML 1,000 ML IV PRN (08:02)
--- NOTE | 2017-01-14 08:09 | PDOC PROGRESS REPORT ---
Subjective Progress Note for:: 01/14/17 Subjective:: Patient feels better overall although she states she had fever intermittently. No diarrhea. Complains of back pain and shoulder pain intermittently. No nausea or vomiting. No shortness of breath or chest pain. Physical Exam Vital Signs: Temp Pulse Resp BP Pulse Ox 97.7 F 75 17 122/66 100 01/14/17 00:17 01/14/17 00:17 01/14/17 00:17 01/14/17 00:17 01/14/17 00:17 Intake & Output 01/13/17 01/14/17 01/15/17 06:59 06:59 06:59 Intake Total 4225 5440 Output Total 255 Balance 3970 5440 Weight 76.8 kg 76.5 kg General appearance: PRESENT: no acute distress, cooperative Head exam: PRESENT: normocephalic Eye exam: PRESENT: EOMI Mouth exam: PRESENT: moist, neck supple Neck exam: ABSENT: JVD Respiratory exam: PRESENT: clear to auscultation david Cardiovascular exam: PRESENT: RRR. ABSENT: gallop GI/Abdominal exam: PRESENT: soft, other - Drain in place with some serosangenous fluid. ABSENT: distended Extremities exam: PRESENT: other - Trace lower extremity edema Neurological exam: PRESENT: alert, awake, oriented to person, oriented to place , oriented to time, oriented to situation Skin exam: PRESENT: dry, warm. ABSENT: cyanosis Results Laboratory Results: 01/14/17 05:15 01/14/17 05:15 01/14/17 01/14/17 05:15 05:15 WBC 9.3 RBC 3.32 L Hgb 9.7 L D Hct 28.7 L MCV 86 MCH 29.3 MCHC 34.0 RDW 12.4 Plt Count 312 Seg Neutrophils % 65.6 Lymphocytes % 19.1 Monocytes % 11.4 Eosinophils % 3.3 Basophils % 0.6 Absolute Neutrophils 6.1 Absolute Lymphocytes 1.8 Absolute Monocytes 1.1 Absolute Eosinophils 0.3 Absolute Basophils 0.1 Sodium 143.4 Potassium 3.5 L Chloride 110 H Carbon Dioxide 20 L Anion Gap 13 BUN 6 L Creatinine 0.32 L Est GFR ( Amer) > 60 Est GFR (Non-Af Amer) > 60 Glucose 87 Calcium 7.9 L Assessment & Plan - Diagnosis (1) Diabetes mellitus Qualifiers: Diabetes mellitus type: type 2 Diabetes mellitus complication status: with unspecified complications Diabetes mellitus director long term care insulin use: with custodial use Qualified Code(s): E11.8 - Type 2 diabetes mellitus with unspecified complications; Z79.4 - longterm (current) use of insulin Is this a current diagnosis for this admission?: Yes (2) Hypertension Qualifiers: Hypertension type: essential hypertension Qualified Code(s): I10 - Essential (primary) hypertension Is this a current diagnosis for this admission?: Yes (3) Hypothyroid Qualifiers: Hypothyroidism type: unspecified Qualified Code(s): E03.9 - Hypothyroidism, unspecified Is this a current diagnosis for this admission?: Yes (4) Hypokalemia Is this a current diagnosis for this admission?: Yes (5) Anemia Qualifiers: Anemia type: unspecified type Qualified Code(s): D64.9 - Anemia, unspecified Is this a current diagnosis for this admission?: Yes (6) Peripheral neuropathy Qualifiers: Peripheral neuropathy type: polyneuropathy, unspecified Qualified Code( s): G62.9 - Polyneuropathy, unspecified Is this a current diagnosis for this admission?: Yes (7) Abscess Is this a current diagnosis for this admission?: Yes - Time Time Spent with patient: 25-34 minutes - Plan Summary Plan Summary: Continue diabetic management. Patient reports that she's been on oral hypoglycemic and insulin at home. She has been taking Levemir and has been on insulin for more than 15 years. We will continue to monitor. We will replace potassium and recheck hemoglobin and hematocrit. We will try the patient on Flexeril for back pain. We will decrease IV fluids. Continue antibiotics and management of abscess per surgical service.
[2017-01-14] MEDS: INSULIN DETEMIR 100 UNIT/ML 3 ML PEN SUBCUT SCH ×2 (08:57→23:36)
[2017-01-14] MEDS: LEVOTHYROXINE SODIUM 0.1 MG TABLET PO SCH (10:41)
[2017-01-14] MEDS: LOSARTAN POTASSIUM 50 MG TABLET PO SCH (10:41)
[2017-01-14] MEDS: ASPIRIN 81 MG TABLET, ENT COATED PO SCH (10:42)
[2017-01-14] MEDS: POTASSIUM CHLORIDE 10 MEQ TABLET.SA PO SCH ×2 (10:43→15:51)
[2017-01-14] MEDS: ERTAPENEM SODIUM 1 GM in NORMAL SALINE 50 ML IV SCH (18:02)
--- NOTE | 2017-01-14 18:18 | PROGRESS NOTE E ---
Progress Note NAME: VIRA COBURN : 1965 AGE: 51Y DATE: 01/14/2017 ROOM: 406 SUBJECTIVE: The patient is without complaints at this time. OBJECTIVE: Blood pressure 147/74, temperature 97.4, pulse 64, respiratory rate is 18. Saturation is 100% on room air. ABDOMEN: Soft. Wound vac is in place over the site of the abdominal wall abscess drainage. ASSESSMENT: POST OP DAY #3 STAUS POST INCISION AND DRAINAGE OF ABDOMINAL WALL ABSCESS. PLAN: The patient will be discharged home tomorrow and will arrange for a wound vac to be placed at home by visiting nurses and changed Friday, Friday and Friday. DICTATING PHYSICIAN: ЕЛЕНА SMITH M.D. [id number] PHY#: [id number] ID: [id number] JOB#: [id number] ACCT: [id number] cc: >
[2017-01-15 05:39] LABS: HEMATOCRIT 32.8 % (36.0-47.0); HEMOGLOBIN 11.1 g/dL (12.0-15.5); HGB HCT DIFFERENCE 0.5; MEAN CORPUSCULAR HGB CONC 33.8 g/dL (32.0-36.0); MEAN CORPUSCULAR VOLUME 86 fl (80-97); RED BLOOD COUNT 3.82 10^6/uL (3.72-5.28); RED CELL DISTRIBUTION WIDTH 12.8 % (11.5-14.0); WHITE BLOOD COUNT 11.3 10^3/uL (4.0-10.5)
[2017-01-15] MEDS: LOSARTAN POTASSIUM 50 MG TABLET PO SCH (09:44)
[2017-01-15] MEDS: INSULIN DETEMIR 100 UNIT/ML 3 ML PEN SUBCUT SCH (09:44)
[2017-01-15] MEDS: LEVOTHYROXINE SODIUM 0.1 MG TABLET PO SCH (09:44)
[2017-01-15] MEDS: ASPIRIN 81 MG TABLET, ENT COATED PO SCH (09:44)
[2017-01-15] MEDS: OXYCODONE-ACETAMINOPHEN 5-325 MG TABLET PO PRN ×2 (12:05→18:14)
--- NOTE | 2017-01-15 13:34 | PDOC PROGRESS REPORT ---
Subjective Progress Note for:: 01/15/17 Subjective:: Patient is doing well other than intermittent discomfort and pain on the surgical site. Patient denies any diarrhea. No nausea or vomiting, no chills or fever. Patient reports taking insulin at home Levemir and likewise tablets for diabetes. Patient denies any chest pain or shortness of breath. Physical Exam Vital Signs: Temp Pulse Resp BP Pulse Ox 98.0 F 74 17 170/78 H 99 01/15/17 11:27 01/15/17 11:27 01/15/17 11:27 01/15/17 11:27 01/15/17 11:27 Intake & Output 01/14/17 01/15/17 01/16/17 06:59 06:59 06:59 Intake Total 5440 3904 Balance 5440 3904 Weight 76.5 kg 88 kg General appearance: PRESENT: no acute distress, cooperative Head exam: PRESENT: normocephalic Eye exam: PRESENT: EOMI Mouth exam: PRESENT: moist, neck supple Neck exam: ABSENT: JVD Respiratory exam: PRESENT: clear to auscultation david Cardiovascular exam: PRESENT: RRR. ABSENT: gallop GI/Abdominal exam: PRESENT: normal bowel sounds, tenderness - Mild. ABSENT: distended Extremities exam: ABSENT: pedal edema Skin exam: PRESENT: dry, warm. ABSENT: cyanosis Results Laboratory Results: 01/15/17 05:02 01/14/17 05:15 01/15/17 05:02 WBC 11.3 H RBC 3.82 Hgb 11.1 L Hct 32.8 L MCV 86 MCH 29.0 MCHC 33.8 RDW 12.8 Plt Count 417 Assessment & Plan - Diagnosis (1) Diabetes mellitus Qualifiers: Diabetes mellitus type: type 2 Diabetes mellitus complication status: with unspecified complications Diabetes mellitus continuous churn buttermaker insulin use: with fci use Qualified Code(s): E11.8 - Type 2 diabetes mellitus with unspecified complications; Z79.4 - equipment operator intermodal yard (current) use of insulin Is this a current diagnosis for this admission?: Yes (2) Hypertension Qualifiers: Hypertension type: essential hypertension Qualified Code(s): I10 - Essential (primary) hypertension Is this a current diagnosis for this admission?: Yes (3) Hypothyroid Qualifiers: Hypothyroidism type: unspecified Qualified Code(s): E03.9 - Hypothyroidism, unspecified Is this a current diagnosis for this admission?: Yes (4) Hypokalemia Is this a current diagnosis for this admission?: Yes (5) Anemia Qualifiers: Anemia type: unspecified type Qualified Code(s): D64.9 - Anemia, unspecified Is this a current diagnosis for this admission?: Yes (6) Peripheral neuropathy Qualifiers: Peripheral neuropathy type: polyneuropathy, unspecified Qualified Code( s): G62.9 - Polyneuropathy, unspecified Is this a current diagnosis for this admission?: Yes (7) Abscess Is this a current diagnosis for this admission?: Yes - Time Time Spent with patient: 25-34 minutes - Plan Summary Plan Summary: We will resume the patient's metformin and oral hypoglycemic medication. Patient being planned by surgery for discharge, and waiting for wound vacuum. Continue current diabetic treatment otherwise. On discharge patient can resume oral hypoglycemics as well as insulin. Recommend to monitor blood sugars 3 times a day and record and bring to next physician visit. Thank you so much for discharge the patient. We will sign off from the case. Please call us as needed.
--- NOTE | 2017-01-15 13:43 | DISCHARGE SUMMARY E ---
Discharge Summary NAME: VIRA COBURN : 1965 AGE: 51Y ADMITTED: 01/11/2017 DISCHARGED: 01/15/2017 DISCHARGE DIAGNOSIS: Status post incision and drainage of abdominal wall abscess. CONDITION: Stable. SUMMARY: This 51-year-old female presented to the emergency room after having an I and D of an abdominal wall panniculus infection drained in the emergency department. The patient went home with packing which has not been changed in 48 hours. Her packing was removed by the nurse in the emergency room, and because of persistent infection of the abdominal wall Surgery was consulted and she was advised admission to be taken to the operating room for debridement. The patient was taken to the operating room on 01/11/2017 where she underwent further incision and drainage and debridement of the abdominal wall abscess area. Wound VAC was applied. The patient was sent back to the floor on continued IV antibiotics. The patient did well and is without complaints and is now discharged home on Bactrim and Keflex. The patient will have wound VAC applied at home on Friday and then will have the wound VAC changed on Mondays, Wednesdays and Fridays as per Home Health. The patient will be seen in followup by Dr. Kapadia in the office. DICTATING PHYSICIAN: ЕЛЕНА SMITH M.D. [id number] PHY#: [id number] ID: [id number] JOB#: [id number] ACCT: [id number] cc:Benoit MARTE MD, M.D KYRON TAMAR, M.D. >
[2017-01-15] MEDS ORDERED: GABAPENTIN 300 MG CAPSULE PO ONE (15:00)
[2017-01-15] MEDS ORDERED: GLIPIZIDE 10 MG TABLET PO ONE (15:00)
[2017-01-15] MEDS ORDERED: METFORMIN HCL 500 MG TABLET PO SCH (17:00)
[2017-01-15 17:51] VITALS: BP 150/85
[2017-01-15] MEDS ORDERED: GABAPENTIN 300 MG CAPSULE PO SCH (22:00)
--- NOTE | 2017-01-16 00:28 | DISCHARGE SUMMARY E ---
Discharge Summary NAME: VIRA COBURN : 1965 AGE: 51Y ADMITTED: 01/11/2017 DISCHARGED: 01/15/2017 DISCHARGE DIAGNOSIS: Status post debridement, status post incision and drainage, status post wound VAC application for abdominal wall abscess. HOSPITAL COURSE: This 50-year-old female was seen by Dr. Kapadia on 12/14/2016 in the emergency room as she had been status post I and D of abdominal wall abscess in the emergency room. The patient was taken back to the operating room for further debridement of the abdominal wall abscess, which was undermining cephalad and inferiorly. The patient underwent application of a wound VAC after debridement had been done in the operating room. The patient is doing well. The patient is now discharged home and will have a wound VAC placed at home and will follow up with Dr. Kapadia next week. DICTATING PHYSICIAN: ЕЛЕНА SMITH M.D. [id number] PHY#: [id number] ID: [id number] JOB#: [id number] ACCT: [id number] cc:Benoit MARTE MD, M.D KYRON TAMAR, M.D. >
[2017-01-16] MEDS ORDERED: GLIPIZIDE 10 MG TABLET PO SCH (08:00)
== END 2017-01-15 18:32 | disposition home health service (06) | DRG 623 ==
LOC: ER 16:56 → EH 20:45 → 4N 23:00
PROVIDERS: ATTEND Surgery
PROC: 0JB80ZZ Excision of Abdomen Subcutaneous Tissue and Fascia, Open Approach (ICD-10-PCS; principal; 2017-01-12 08:00)
PROC: 3E0234Z Introduction of Serum, Toxoid and Vaccine into Muscle, Percutaneous Approach (ICD-10-PCS; 2017-01-15)
DX: E11.628 Type 2 diabetes mellitus with other skin complications (principal); L03.311 Cellulitis of abdominal wall; L02.211 Cutaneous abscess of abdominal wall; E78.00 Pure hypercholesterolemia, unspecified; E03.9 Hypothyroidism, unspecified; E11.42 Type 2 diabetes mellitus with diabetic polyneuropathy; E78.5 Hyperlipidemia, unspecified; I10 Essential (primary) hypertension; B96.20 Unspecified Escherichia coli [E. coli] as the cause of diseases classified elsewhere; E11.65 Type 2 diabetes mellitus with hyperglycemia; E65 Localized adiposity; K21.9 Gastro-esophageal reflux disease without esophagitis; D64.9 Anemia, unspecified; F17.210 Nicotine dependence, cigarettes, uncomplicated; E87.6 Hypokalemia; Z79.899 Other long term (current) drug therapy; Z88.8 Allergy status to other drugs, medicaments and biological substances; Z87.442 Personal history of urinary calculi; Z90.49 Acquired absence of other specified parts of digestive tract; Z90.710 Acquired absence of both cervix and uterus; Z79.84 Long term (current) use of oral hypoglycemic drugs; Z79.4 Long term (current) use of insulin; Z23 Encounter for immunization
CPT/HCPCS: 36415; 800; 80048; 80053; 81001; 82962; 83605; 83690; 85025; 85027; 87070; 87075; 87077; 87186; 87205; 90686; 99284; J1335; J1815; J1885; J2250; J2270; J2405; J2704; J3010; J3490; J7030

== ENCOUNTER → 2017-01-31 | Outpatient (CLI) | payer OTHER | LOC: WI 08:45 | PROVIDERS: ATTEND Family Medicine | DX: R10.11 Right upper quadrant pain (principal); N13.30 Unspecified hydronephrosis | CPT/HCPCS: 76705 ==

== ENCOUNTER 2017-05-03 15:51 | Emergency (ER) | payer OTHER ==
--- NOTE | 2017-05-03 16:48 | ER Document Report ---
ED Medical Screen (RME) - General Chief Complaint: Dizziness Stated Complaint: BODY PAIN, DIZZINESS Time Seen by Provider: 05/03/17 16:32 Mode of Arrival: Ambulatory Information source: Patient Notes: this is a 51-year-old female with a history of diabetes, DKA, skin abscesses who presents to the emergency room with a tender lump over the left proximal thigh posteriorly. Patient denies fever. She states she started oral antibiotics (Bactrim and Keflex) 5 days ago and has been doing warm pads to the area without any benefit. Patient does have a history of skin abscesses requiring drainage in the operating room several months ago. TRAVEL OUTSIDE OF THE [place] IN LAST 30 DAYS: No - Related Data Allergies/Adverse Reactions: atorvastatin calcium [From Lipitor] Allergy (Mild, Verified 05/03/17 15:53) Muscle Aches rosuvastatin calcium [From Crestor] Allergy (Mild, Verified 05/03/17 15:53) Muscle Aches adhesive [Adhesive] Allergy (Verified 05/03/17 15:53) Past Medical History - Social History Frequency of alcohol use: Rare Drug Abuse: None - Past Medical History Cardiac Medical History: Reports: Hx Hypercholesterolemia, Hx Hypertension Pulmonary Medical History: Reports: Hx Bronchitis Denies: Hx Tuberculosis Endocrine Medical History: Reports: Hx Diabetes Mellitus Type 2, Hx Hypothyroidism Renal/ Medical History: Reports: Hx Kidney Stones. Denies: Hx Peritoneal Dialysis GI Medical History: Reports: Hx Gastroesophageal Reflux Disease Past Surgical History: Reports: Hx Cholecystectomy, Hx Hysterectomy, Hx Nose Surgery, Hx Orthopedic Surgery - right foot, Hx Tonsillectomy, Other - I&D of pannicular abscess 48 hours ago - Immunizations Hx Diphtheria, Pertussis, Tetanus Vaccination: Yes Physical Exam - Vital signs Vitals: Temp Pulse Resp BP Pulse Ox 98.1 F 122 H 18 128/70 H 96 05/03/17 15:53 05/03/17 15:53 05/03/17 15:53 05/03/17 15:53 05/03/17 15:53 Course - Vital Signs Vital signs: Temp Pulse Resp BP Pulse Ox 98.1 F 122 H 18 128/70 H 96 05/03/17 15:53 05/03/17 15:53 05/03/17 15:53 05/03/17 15:53 05/03/17 15:53
[2017-05-03 17:18] LABS: ABSOLUTE BASOPHILS # (AUTO) 0.1 10^3/uL (0.0-0.2); ABSOLUTE EOSINOPHILS # (AUTO) 0.1 10^3/uL (0.0-0.6); ABSOLUTE LYMPHOCYTES (AUTO) 2.9 10^3/uL (0.5-4.7); ABSOLUTE MONOCYTES (AUTO) 1.1 10^3/uL (0.1-1.4); ABSOLUTE NEUT (AUTO) 8.2 10^3/uL (1.7-8.2); BASOPHILS % (AUTO) 0.8 % (0-2); EOSINOPHILS % (AUTO) 1.1 % (0-6); HEMATOCRIT 38.4 % (36.0-47.0); HEMOGLOBIN 12.8 g/dL (12.0-15.5); LYMPHOCYTES % (AUTO) 23.2 % (13-45); MEAN CORPUSCULAR HEMOGLOBIN 29.3 pg (27.0-33.4); MEAN CORPUSCULAR HGB CONC 33.2 g/dL (32.0-36.0); MEAN CORPUSCULAR VOLUME 88 fl (80-97); MONOCYTES % (AUTO) 8.7 % (3-13); RED BLOOD COUNT 4.36 10^6/uL (3.72-5.28); RED CELL DISTRIBUTION WIDTH 12.7 % (11.5-14.0); SEGMENTED NEUTROPHILS % (AUTO) 66.2 % (42-78); WHITE BLOOD COUNT 12.3 10^3/uL (4.0-10.5)
[2017-05-03 17:36] LABS: ALANINE AMINOTRANSFERASE 24 U/L (9-52); ALBUMIN 3.9 g/dL (3.5-5.0); ALKALINE PHOSPHATASE 108 U/L (38-126); ANION GAP 16 (5-19); ASPARTATE AMINO TRANSFERASE 15 U/L (14-36); BILIRUBIN,DIRECT 0.3 mg/dL (0.0-0.4); BILIRUBIN,TOTAL 0.5 mg/dL (0.2-1.3); BLOOD UREA NITROGEN 33 mg/dL (7-20); CALCIUM 9.1 mg/dL (8.4-10.2); CARBON DIOXIDE 20 mmol/L (22-30); CHLORIDE 98 mmol/L (98-107); CREATINE KINASE 146 U/L (30-135); CREATININE RESULT 2.18 mg/dL (0.52-1.25); GLUCOSE 379 mg/dL (75-110); POTASSIUM 5.6 mmol/L (3.6-5.0); SODIUM 133.5 mmol/L (137-145); TOTAL PROTEIN 7.5 g/dL (6.3-8.2)
[2017-05-03] MEDS ORDERED: LIDOCAINE 2%/EPINEPHRINE INJ 20 ML VIAL INJ ONE (17:37)
[2017-05-03] MEDS ORDERED: LIDOCAINE 1%/EPINEPHRINE INJ 20 ML VIAL INJ ONE (17:38)
--- NOTE | 2017-05-03 17:50 | ER Document Report ---
ED General - General Chief Complaint: Dizziness Stated Complaint: BODY PAIN, DIZZINESS Time Seen by Provider: 05/03/17 16:32 Mode of Arrival: Ambulatory Notes: 51-year-old female presents with a painful lump to her left posterior thigh for several days. Associated with swelling and redness. The redness is decreased when she started taking Bactrim and Keflex which she had left over from a previous abscess. She denies fever or chills. Denies other systemic symptoms. She has 2 days left of her Bactrim and Keflex but since the bump was not going away she decided to come in for further evaluation. TRAVEL OUTSIDE OF THE [place] IN LAST 30 DAYS: No - Related Data Allergies/Adverse Reactions: atorvastatin calcium [From Lipitor] Allergy (Mild, Verified 05/03/17 15:53) Muscle Aches rosuvastatin calcium [From Crestor] Allergy (Mild, Verified 05/03/17 15:53) Muscle Aches adhesive [Adhesive] Allergy (Verified 05/03/17 15:53) Past Medical History - General Information source: Patient - Social History Smoking Status: Current Every Day Smoker Frequency of alcohol use: Rare Drug Abuse: None Family History: CVA Patient has suicidal ideation: No Patient has homicidal ideation: No - Past Medical History Cardiac Medical History: Reports: Hx Hypercholesterolemia, Hx Hypertension Pulmonary Medical History: Reports: Hx Bronchitis Denies: Hx Tuberculosis Endocrine Medical History: Reports: Hx Diabetes Mellitus Type 2, Hx Hypothyroidism Renal/ Medical History: Reports: Hx Kidney Stones. Denies: Hx Peritoneal Dialysis GI Medical History: Reports: Hx Gastroesophageal Reflux Disease Past Surgical History: Reports: Hx Cholecystectomy, Hx Hysterectomy, Hx Nose Surgery, Hx Orthopedic Surgery - right foot, Hx Tonsillectomy, Other - I&D of pannicular abscess 48 hours ago - Immunizations Hx Diphtheria, Pertussis, Tetanus Vaccination: Yes Hx Pneumococcal Vaccination: 10/27/05 Review of Systems - Review of Systems Notes: REVIEW OF SYSTEMS GEN: Denies fever, chills, weight loss ENT: Denies sore throat, nasal discharge, ear pain EYES: Denies blurry vision, eye pain, discharge CV: Denies chest pain, palpitations, edema RESP: Denies cough, shortness of breath, wheezing GI: Denies abdominal pain, nausea, vomiting, diarrhea MSK: Denies joint pain/swelling, edema, SKIN: Abscess LYMPH: Denies swollen glands/lymph nodes NEURO: Denies headache, focal weakness or numbness, dizziness PSYCH: Denies depression, suicidal or homicidal ideation PHYSICAL EXAMINATION General: No acute distress, well-nourished Head: Atraumatic, normocephalic ENT: Mouth normal, oropharynx moist, no exudates or tonsillar enlargement Eyes: Conjunctiva normal, pupils equal, lids normal Neck: No JVD, supple, no guarding CVS: Normal rate, regular rhythm, no murmurs Resp: No resp distress, equal and normal breath sounds bilaterally GI: Nondistended, soft, no tenderness to palpation, no rebound or guarding Ext: 4 x 4 cm area of fluctuance, tenderness and erythema with minimal surrounding erythema, on the left posterior thigh t Back: No CVA or midline TTP Skin: No rash, warm Lymphatic: No lymphadeopathy noted Neuro: Awake, alert. Face symmetric. GCS 15. Physical Exam - Vital signs Vitals: Temp Pulse Resp BP Pulse Ox 98.1 F 122 H 18 128/70 H 96 05/03/17 15:53 05/03/17 15:53 05/03/17 15:53 05/03/17 15:53 05/03/17 15:53 Course - Vital Signs Vital signs: Temp Pulse Resp BP Pulse Ox 98.1 F 122 H 18 128/70 H 96 05/03/17 15:53 05/03/17 15:53 05/03/17 15:53 05/03/17 15:53 05/03/17 15:53 - Laboratory Result Diagrams: 05/03/17 17:00 05/03/17 17:00 Laboratory results interpreted by me: 05/03/17 05/03/17 17:00 17:00 WBC 12.3 H Sodium 133.5 L Potassium 5.6 H Carbon Dioxide 20 L BUN 33 H Creatinine 2.18 H Est GFR ( Amer) 29 L Est GFR (Non-Af Amer) 24 L Glucose 379 H Creatine Kinase 146 H Procedures - Incision and Drainage Left Posterior Leg Time completed: 18:13 Type: Simple Anesthetic type: 1% Lidocaine w/epi mL's of anesthetic: 2 Blade size: 11 I&D procedure: Betadine prep applied Incision Method: Incision made by scalpel Notes: Loop drainage. Prepped in the normal fashion. Stab incision made the periphery of abscess. Pus was removed, 5 cc of bloody pus. Explore for loculations broken up. Second stab incision made. A cuff of a sterile glove was looped through the 2 incisions and tied over a 10 cc syringe. It was freely mobile afterward. Consultations: None, tolerated well. Patient educated on care of loop drainage discharge instructions. Discharge - Discharge Clinical Impression: Abscess Condition: Good Disposition: HOME, SELF-CARE Instructions: Abscess ([facility]) Additional Instructions: Test was treated with a loop drainage technique to avoid re-packing and further cutting. As we discussed, please apply warm heat to the abscess 3 times per day and rotate the loop to keep the incisions open. Bloody and pus drainage is normal. This should persist for a couple of days and then stop. Once the drainage is stopped the abscess is deflated and the redness subsides you may cut the loop and remove it yourself. Please place a dressing on at this time. Return to the ER for increasing redness, increasing swelling or fever. Continue your antibiotics.
[2017-05-03 19:17] VITALS: BP 116/52
== END 2017-05-03 19:16 | disposition home or self-care (01) ==
LOC: ER 15:51
PROC: 0H9JXZZ Drainage of Left Upper Leg Skin, External Approach (ICD-10-PCS; principal; 2017-05-03)
DX: L02.416 Cutaneous abscess of left lower limb (principal); E11.9 Type 2 diabetes mellitus without complications; I10 Essential (primary) hypertension; F17.200 Nicotine dependence, unspecified, uncomplicated; Z88.8 Allergy status to other drugs, medicaments and biological substances; Z91.048 Other nonmedicinal substance allergy status
CPT/HCPCS: 10060; 99284; 36415; 82550; 85025; 80053; J3490

== ENCOUNTER → 2017-05-07 | Outpatient (CLI) | payer OTHER ==
[2017-05-07 11:05] LABS: ABSOLUTE BASOPHILS # (AUTO) 0.1 10^3/uL (0.0-0.2); ABSOLUTE EOSINOPHILS # (AUTO) 0.4 10^3/uL (0.0-0.6); ABSOLUTE LYMPHOCYTES (AUTO) 3.9 10^3/uL (0.5-4.7); ABSOLUTE MONOCYTES (AUTO) 1.1 10^3/uL (0.1-1.4); ABSOLUTE NEUT (AUTO) 7.5 10^3/uL (1.7-8.2); BASOPHILS % (AUTO) 0.9 % (0-2); HEMATOCRIT 40.4 % (36.0-47.0); HEMOGLOBIN 13.3 g/dL (12.0-15.5); HGB HCT DIFFERENCE -0.5; LYMPHOCYTES % (AUTO) 30.1 % (13-45); MEAN CORPUSCULAR HGB CONC 32.9 g/dL (32.0-36.0); MEAN CORPUSCULAR VOLUME 88 fl (80-97); MONOCYTES % (AUTO) 8.3 % (3-13); RED BLOOD COUNT 4.59 10^6/uL (3.72-5.28); RED CELL DISTRIBUTION WIDTH 12.3 % (11.5-14.0); SEGMENTED NEUTROPHILS % (AUTO) 57.7 % (42-78)
[2017-05-07 11:13] LABS: ALANINE AMINOTRANSFERASE 25 U/L (9-52); ALBUMIN 4.4 g/dL (3.5-5.0); ALKALINE PHOSPHATASE 117 U/L (38-126); ANION GAP 15 (5-19); ASPARTATE AMINO TRANSFERASE 10 U/L (14-36); BILIRUBIN,DIRECT 0.3 mg/dL (0.0-0.4); BILIRUBIN,TOTAL 0.5 mg/dL (0.2-1.3); BLOOD UREA NITROGEN 20 mg/dL (7-20); CALCIUM 9.4 mg/dL (8.4-10.2); CARBON DIOXIDE 24 mmol/L (22-30); CHLORIDE 101 mmol/L (98-107); CHOLESTEROL 224.96 mg/dL (0-200); CREATININE RESULT 0.61 mg/dL (0.52-1.25); Direct HDL 49 mg/dL (>40); GLUCOSE 203 mg/dL (75-110); POTASSIUM 5.5 mmol/L (3.6-5.0); TOTAL PROTEIN 7.9 g/dL (6.3-8.2); TRIGLYCERIDES 172 mg/dL (<150)
[2017-05-07 11:24] LABS: DIRECT LDL 145 mg/dL (<100)
[2017-05-07 11:26] LABS: VLDL CHOLESTEROL 34.4 mg/dL (10-31)
[2017-05-07 11:45] LABS: ERYTHROCYTE SEDIMENTATION RATE 45 mm/hr (0-30)
== END ==
LOC: CCC 10:16
DX: E11.22 Type 2 diabetes mellitus with diabetic chronic kidney disease (principal); I12.9 Hypertensive chronic kidney disease with stage 1 through stage 4 chronic kidney disease, or unspecified chronic kidney disease; N18.4 Chronic kidney disease, stage 4 (severe)
CPT/HCPCS: 36415; 80053; 80061; 83036; 85025; 85652

== ENCOUNTER → 2018-11-12 | Outpatient (CLI) | payer OTHER ==
[2018-11-12 08:43] LABS: ABSOLUTE BASOPHILS # (AUTO) 0.1 10^3/uL (0.0-0.2); ABSOLUTE EOSINOPHILS # (AUTO) 0.4 10^3/uL (0.0-0.6); ABSOLUTE MONOCYTES (AUTO) 0.8 10^3/uL (0.1-1.4); ABSOLUTE NEUT (AUTO) 4.8 10^3/uL (1.7-8.2); BASOPHILS % (AUTO) 0.7 % (0-2); EOSINOPHILS % (AUTO) 4.3 % (0-6); HEMATOCRIT 37.8 % (36.0-47.0); HEMOGLOBIN 12.9 g/dL (12.0-15.5); LYMPHOCYTES % (AUTO) 33.1 % (13-45); MEAN CORPUSCULAR HEMOGLOBIN 29.2 pg (27.0-33.4); MEAN CORPUSCULAR HGB CONC 34.2 g/dL (32.0-36.0); MEAN CORPUSCULAR VOLUME 86 fl (80-97); MONOCYTES % (AUTO) 8.7 % (3-13); PLATELET COUNT 358 10^3/uL (150-450); RED BLOOD COUNT 4.42 10^6/uL (3.72-5.28); SEGMENTED NEUTROPHILS % (AUTO) 53.2 % (42-78); TOTAL CELLS COUNTED % (AUTO) 100 %; WHITE BLOOD COUNT 9.1 10^3/uL (4.0-10.5)
[2018-11-12 09:17] LABS: ALANINE AMINOTRANSFERASE 21 U/L (9-52); ALBUMIN 4.5 g/dL (3.5-5.0); ALKALINE PHOSPHATASE 102 U/L (38-126); ANION GAP 8 (5-19); ASPARTATE AMINO TRANSFERASE 19 U/L (14-36); BILIRUBIN,DIRECT 0.3 mg/dL (0.0-0.4); BILIRUBIN,TOTAL 0.7 mg/dL (0.2-1.3); BLOOD UREA NITROGEN 24 mg/dL (7-20); CALCIUM 9.8 mg/dL (8.4-10.2); CARBON DIOXIDE 31 mmol/L (22-30); CHLORIDE 103 mmol/L (98-107); CHOLESTEROL 250.47 mg/dL (0-200); GLUCOSE 121 mg/dL (75-110); POTASSIUM 4.9 mmol/L (3.6-5.0); SODIUM 142.3 mmol/L (137-145); TOTAL PROTEIN 7.6 g/dL (6.3-8.2); TRIGLYCERIDES 182 mg/dL (<150); URIC ACID 5.8 mg/dL (2.5-7.5)
[2018-11-12 09:28] LABS: DIRECT LDL 155 mg/dL (<100)
[2018-11-12 09:31] LABS: VLDL CHOLESTEROL 36.4 mg/dL (10-31)
== END ==
LOC: CCC 07:35
DX: E11.8 Type 2 diabetes mellitus with unspecified complications (principal); E03.9 Hypothyroidism, unspecified
CPT/HCPCS: 36415; 80053; 80061; 83036; 84436; 84443; 84550; 85025

== ENCOUNTER 2019-07-06 11:52 | Emergency (ER) | payer SELFPAY ==
[2019-07-06] MEDS ORDERED: KETOROLAC TROMETHAMINE INJ/PF 30 MG/1 ML SDV IV ONE (12:52)
[2019-07-06] MEDS ORDERED: ONDANSETRON HCL INJ/PF 4 MG/2 ML SDV IV ONE (12:52)
--- NOTE | 2019-07-06 12:53 | ER Document Report ---
ED Medical Screen (RME) - General Chief Complaint: Abdominal Pain Stated Complaint: LOWER BACK PAIN Time Seen by Provider: 07/06/19 12:48 Primary Care Provider: KRYSTINA WATSON,JOSE [Primary Care Provider] - Follow up as needed Mode of Arrival: Ambulatory Information source: Patient Notes: Patient is a 54-year-old female presented to the emergency department chief complaint of right flank pain and right lower quadrant abdominal pain. Patient reports associated nausea and chills. She was sent over from the primary care provider's office with concerns for possible pancreatitis. She denies any history of pancreatitis. She does report a history of kidney stones, states that they checked a urine sample at the office and did not note any blood in the urine. Exam: Mild tenderness to palpation to the right lower quadrant and lower abdomen in general. I have greeted and performed a rapid initial assessment of this patient. A comprehensive ED assessment and evaluation of the patient, analysis of test results and completion of the medical decision making process will be conducted by additional ED providers. I have specifically instructed the patient or family members with the patient to immediately return to any nursing staff should anything change in the patient's condition or with their chief complaint. This medical record was dictated with voice recognizing software. There may be grammatical, syntax errors that are unintended. TRAVEL OUTSIDE OF THE [place] IN LAST 30 DAYS: No - Related Data Allergies/Adverse Reactions: atorvastatin calcium [From Lipitor] Allergy (Mild, Verified 07/06/19 11:56) Muscle Aches rosuvastatin calcium [From Crestor] Allergy (Mild, Verified 07/06/19 11:56) Muscle Aches adhesive [Adhesive] Allergy (Verified 07/06/19 11:56) Past Medical History - Past Medical History Cardiac Medical History: Reports: Hx Hypercholesterolemia, Hx Hypertension Pulmonary Medical History: Reports: Hx Bronchitis Denies: Hx Tuberculosis Endocrine Medical History: Reports: Hx Diabetes Mellitus Type 2, Hx Hypothyroidism Renal/ Medical History: Reports: Hx Kidney Stones. Denies: Hx Peritoneal Dialysis GI Medical History: Reports: Hx Gastroesophageal Reflux Disease Past Surgical History: Reports: Hx Cholecystectomy, Hx Hysterectomy, Hx Nose Surgery, Hx Orthopedic Surgery - right foot, Hx Tonsillectomy, Other - I&D of pannicular abscess 48 hours ago - Immunizations Hx Diphtheria, Pertussis, Tetanus Vaccination: Yes Physical Exam - Vital signs Vitals: Temp Pulse Resp BP Pulse Ox 98.6 F 106 H 16 169/91 H 96 07/06/19 11:57 07/06/19 11:57 07/06/19 11:57 07/06/19 11:57 07/06/19 11:57 Course - Vital Signs Vital signs: Temp Pulse Resp BP Pulse Ox 98.6 F 106 H 16 169/91 H 96 07/06/19 11:57 07/06/19 11:57 07/06/19 11:57 07/06/19 11:57 07/06/19 11:57 Doctor's Discharge - Discharge Referrals: [facility] [Primary Care Provider] - Follow up as needed
[2019-07-06 13:36] LABS: ABSOLUTE BASOPHILS # (AUTO) 0.1 10^3/uL (0.0-0.2); ABSOLUTE EOSINOPHILS # (AUTO) 0.3 10^3/uL (0.0-0.6); BASOPHILS % (AUTO) 0.5 % (0-2); TOTAL CELLS COUNTED % (AUTO) 100 %
[2019-07-06 13:44] LABS: APPEARANCE,URINE SLIGHTLY-CLOUDY; BILIRUBIN,URINE NEGATIVE (NEGATIVE); COLOR,URINE YELLOW; GLUCOSE, URINE >=500 mg/dL (NEGATIVE); KETONES,URINE NEGATIVE (NEGATIVE); LEUKOCYTE ESTERASE,URINE NEGATIVE (NEGATIVE); NITRITE,URINE NEGATIVE (NEGATIVE); PROTEIN,URINE NEGATIVE (NEGATIVE); URINE SPECIFIC GRAVITY 1.012; UROBILINOGEN,URINE NEGATIVE mg/dL (<2.0)
[2019-07-06 13:45] LABS: ABSOLUTE MONOCYTES (AUTO) 0.8 10^3/uL (0.1-1.4); ABSOLUTE NEUT (AUTO) 8.4 10^3/uL (1.7-8.2); EOSINOPHILS % (AUTO) 2.3 % (0-6); HEMATOCRIT 39.7 % (36.0-47.0); HEMOGLOBIN 13.3 g/dL (12.0-15.5); LYMPHOCYTES % (AUTO) 23.8 % (13-45); MEAN CORPUSCULAR HEMOGLOBIN 28.4 pg (27.0-33.4); MEAN CORPUSCULAR HGB CONC 33.6 g/dL (32.0-36.0); MEAN CORPUSCULAR VOLUME 85 fl (80-97); MONOCYTES % (AUTO) 6.6 % (3-13); PLATELET COUNT 357 10^3/uL (150-450); RED BLOOD COUNT 4.69 10^6/uL (3.72-5.28); RED CELL DISTRIBUTION WIDTH 12.9 % (11.5-14.0); SEGMENTED NEUTROPHILS % (AUTO) 66.8 % (42-78); WHITE BLOOD COUNT 12.6 10^3/uL (4.0-10.5)
[2019-07-06 14:03] LABS: ALBUMIN 4.8 g/dL (3.5-5.0); ALKALINE PHOSPHATASE 130 U/L (38-126); ANION GAP 12 (5-19); ASPARTATE AMINO TRANSFERASE 22 U/L (14-36); BILIRUBIN,DIRECT 0.2 mg/dL (0.0-0.4); BILIRUBIN,TOTAL 0.7 mg/dL (0.2-1.3); BLOOD UREA NITROGEN 20 mg/dL (7-20); CALCIUM 10.1 mg/dL (8.4-10.2); CARBON DIOXIDE 29 mmol/L (22-30); CHLORIDE 96 mmol/L (98-107); GLUCOSE 97 mg/dL (75-110); POTASSIUM 4.4 mmol/L (3.6-5.0); TOTAL PROTEIN 8.3 g/dL (6.3-8.2)
--- NOTE | 2019-07-06 16:05 | RADIOLOGY REPORT (SQ) ---
EXAM DESCRIPTION: CT ABD/PELVIS NO ORAL OR IV COMPLETED DATE/TIME: 07/06/2019 3:56 pm REASON FOR STUDY: R flank pain COMPARISON: Abdominal ultrasound dated 01/31/2017 TECHNIQUE: CT scan of the abdomen and pelvis performed without intravenous or oral contrast. Images reviewed with lung, soft tissue, and bone windows. Reconstructed coronal and sagittal MPR images revi ewed. All images stored on PACS. All CT scanners at this facility use dose modulation, iterative reconstruction, and/or weight based d osing when appropriate to reduce radiation dose to as low as reasonably achievable (ALARA). [facility]: Dose Right [facility]: CareDose [facility]: Dose Right [facility]: Teradose 4D [facility]: [place] RADIATION DOSE: CT Rad equipment meets quality standard of care and radiation dose reduction techniq ues were employed. CTDIvol: 19.7 mGy. DLP: 1090 mGy-cm.mGy. LIMITATIONS: None. FINDINGS: LOWER CHEST: No significant findings. No nodules or infiltrates. NON-CONTRASTED LIVER, SPLEEN, ADRENALS: The liver and spleen are unremarkable. There is a 3.4 x 3.4 cm left adrenal adenoma. PANCREAS: No masses. No peripancreatic inflammatory changes. GALLBLADDER: Surgically absent. RIGHT KIDNEY AND URETER: No suspicious masses. Assessment limited by lack of IV contrast. No signif icant calcifications. No hydronephrosis or hydroureter. LEFT KIDNEY AND URETER: No suspicious masses. Assessment limited by lack of IV contrast. No signifi cant calcifications. No hydronephrosis or hydroureter. AORTA AND RETROPERITONEUM: No aneurysm. No retroperitoneal masses or adenopathy. BOWEL AND PERITONEAL CAVITY: No obvious masses or inflammatory changes. No free fluid. APPENDIX: Normal. PELVIS, BLADDER, AND ABDOMINAL WALL:No abnormal masses. No free fluid. Bladder normal. BONES: No significant findings. OTHER: No other significant finding. IMPRESSION: 3.4 x 3.4 cm left adrenal adenoma. No other significant findings. COMMENT: Quality ID # [id number]: Final reports with documentation of one or more dose reduction techniques (e.g., Automated exposure control, adjustment of the mA and/or kV according to patient size, use of iterative reconstruction technique) TECHNICAL DOCUMENTATION: JOB ID: [id number] [employer]- All Rights Reserved Reading location - IP/workstation name: [email or web address]
--- NOTE | 2019-07-06 16:23 | ER Document Report ---
ED GI/ - General Chief Complaint: Abdominal Pain Stated Complaint: LOWER BACK PAIN Time Seen by Provider: 07/06/19 12:48 Primary Care Provider: [facility] [Primary Care Provider] - Follow up as needed Mode of Arrival: Ambulatory Notes: 54-year-old female presented to the emergency department chief complaint of right flank pain and right lower quadrant abdominal pain. Patient reports associated nausea and chills. She was sent over from the primary care provider's office with concerns for possible pancreatitis. She denies any history of pancreatitis. She does report a history of kidney stones, states that they checked a urine sample at the office and did not note any blood in the urine. Patient denies any fevers, denies any chest pain or acute shortness of breath, denies any upper abdominal pain, denies any dysuria, urinary frequency, urgency TRAVEL OUTSIDE OF THE [place] IN LAST 30 DAYS: No - Related Data Allergies/Adverse Reactions: atorvastatin calcium [From Lipitor] Allergy (Mild, Verified 07/06/19 11:56) Muscle Aches rosuvastatin calcium [From Crestor] Allergy (Mild, Verified 07/06/19 11:56) Muscle Aches adhesive [Adhesive] Allergy (Verified 07/06/19 11:56) Past Medical History - General Information source: Patient - Social History Smoking Status: Current Every Day Smoker Chew tobacco use (# tins/day): No Frequency of alcohol use: Occasional Drug Abuse: None Family History: CVA Patient has suicidal ideation: No Patient has homicidal ideation: No - Past Medical History Cardiac Medical History: Reports: Hx Hypercholesterolemia, Hx Hypertension Pulmonary Medical History: Reports: Hx Bronchitis Denies: Hx Tuberculosis Endocrine Medical History: Reports: Hx Diabetes Mellitus Type 2, Hx Hypothyroidism Renal/ Medical History: Reports: Hx Kidney Stones. Denies: Hx Peritoneal Dialysis GI Medical History: Reports: Hx Gastroesophageal Reflux Disease Past Surgical History: Reports: Hx Cholecystectomy, Hx Hysterectomy, Hx Nose Surgery, Hx Orthopedic Surgery - right foot, Hx Tonsillectomy, Other - I&D of pannicular abscess 48 hours ago - Immunizations Hx Diphtheria, Pertussis, Tetanus Vaccination: Yes Hx Pneumococcal Vaccination: 10/27/05 Review of Systems - Review of Systems Constitutional: See HPI EENT: No symptoms reported Cardiovascular: See HPI Respiratory: See HPI Gastrointestinal: See HPI Genitourinary: See HPI Female Genitourinary: See HPI Musculoskeletal: No symptoms reported Skin: No symptoms reported Hematologic/Lymphatic: No symptoms reported Neurological/Psychological: No symptoms reported Physical Exam - Vital signs Vitals: Temp Pulse Resp BP Pulse Ox 98.6 F 106 H 16 169/91 H 96 07/06/19 11:57 07/06/19 11:57 07/06/19 11:57 07/06/19 11:57 07/06/19 11:57 - Notes Notes: PHYSICAL EXAMINATION: Reviewed vital signs and charting by RN GENERAL: Alert, interacts well. No acute distress. HEAD: Normocephalic, atraumatic. EYES: Pupils equal and round. Extraocular movements intact. ENT: Oral mucosa moist, tongue midline. NECK: Full range of motion. Trachea midline. LUNGS: Clear to auscultation bilaterally, no wheezes, rales, or rhonchi. No respiratory distress. HEART: Regular rate and rhythm. No murmur ABDOMEN: soft, non-tender. No distention. Bowel sounds present BACK: Very mild right CVAT EXTREMITIES: Moves all 4 extremities spontaneously. No edema, No cyanosis. PSYCH: Normal affect, normal mood. SKIN: Warm, dry, normal turgor. No rashes or lesions noted. Course - Re-evaluation Re-evalutation: 07/06/19 17:05 Patient is overall very well-appearing. Normal limits. After further investigation her pain was in the right flank so I ordered a CT abdomen/pelvis without to assess for nephrolithiasis. Did not show any evidence of nephroli thiasis and limited by lack of IV contrast, appendix was normal. There was an incidental adenoma on the left adrenal gland which I discussed with the patient. Urinalysis did show small amount of blood with RBCs. Possible passed a kidney stone spontaneously. She did receive Toradol and feels better and is currently pain-free. Discussed all this with patient and her vital signs are normal at this time. She is stable for discharge with strict return precautions. - Vital Signs Vital signs: Temp Pulse Resp BP Pulse Ox 98.6 F 106 H 16 169/91 H 96 07/06/19 11:57 07/06/19 11:57 07/06/19 11:57 07/06/19 11:57 07/06/19 11:57 - Laboratory Result Diagrams: 07/06/19 13:25 07/06/19 13:25 Laboratory results interpreted by me: 07/06/19 07/06/19 07/06/19 13:25 13:25 13:25 WBC 12.6 H Absolute Neuts (auto) 8.4 H Chloride 96 L Alkaline Phosphatase 130 H Total Protein 8.3 H Urine Glucose (UA) >=500 H Urine Blood SMALL H Discharge - Discharge Clinical Impression: Flank pain, Right lower quadrant abdominal pain Condition: Good Disposition: HOME, SELF-CARE Instructions: Toradol Injection ([facility]) Additional Instructions: You have been seen in the Emergency Department (ED) for abdominal pain. Your evaluation did not identify a clear cause of your symptoms but was generally reassuring. Please follow up with your doctor as soon as possible regarding today's emergent visit and the symptoms that are bothering you. Return to the ED if your abdominal pain worsens or fails to improve, you develop bloody vomiting, bloody diarrhea, you are unable to tolerate fluids due to vomiting, fever greater than 101, or other symptoms that concern you. Referrals: [facility] [Primary Care Provider] - Follow up as needed
[2019-07-06 16:29] VITALS: BP 155/78
== END 2019-07-06 16:29 | disposition home or self-care (01) ==
LOC: ER 11:52
DX: R10.9 Unspecified abdominal pain (principal); R10.31 Right lower quadrant pain; R11.0 Nausea; R68.83 Chills (without fever); R31.9 Hematuria, unspecified; D35.02 Benign neoplasm of left adrenal gland; I10 Essential (primary) hypertension; E11.9 Type 2 diabetes mellitus without complications; F17.200 Nicotine dependence, unspecified, uncomplicated; Z87.442 Personal history of urinary calculi; Z87.19 Personal history of other diseases of the digestive system; Z88.8 Allergy status to other drugs, medicaments and biological substances; Z91.048 Other nonmedicinal substance allergy status; Z90.710 Acquired absence of both cervix and uterus; Z90.49 Acquired absence of other specified parts of digestive tract
CPT/HCPCS: 99284; 96374; 96375; 36415; 83690; 85025; 80053; 81001; 74176; J1885; J2405

== ENCOUNTER 2019-09-06 13:26 | Emergency (ER) | payer OTHER ==
--- NOTE | 2019-09-06 15:12 | RADIOLOGY REPORT (SQ) ---
EXAM DESCRIPTION: SHOULDER LEFT 2 OR MORE VIEWS COMPLETED DATE/TIME: 09/06/2019 2:54 pm REASON FOR STUDY: FALL COMPARISON: 01/11/2014. NUMBER OF VIEWS: Three views. TECHNIQUE: Internal rotation, external rotation, and Y view images acquired of the left shoulder. LIMITATIONS: None. FINDINGS: MINERALIZATION: Normal. BONES: No acute fracture. No worrisome bone lesions. JOINTS: No dislocation. VISUALIZED LUNGS AND RIBS: No pneumothorax. No rib fracture. SOFT TISSUES: No radiopaque foreign body. OTHER: No other significant finding. IMPRESSION: NEGATIVE STUDY OF THE LEFT SHOULDER. NO RADIOGRAPHIC EVIDENCE OF ACUTE INJURY. TECHNICAL DOCUMENTATION: JOB ID: [id number] [employer]- All Rights Reserved Reading location - IP/workstation name: [email or web address]
--- NOTE | 2019-09-06 15:38 | ER Document Report ---
Doctor's Note Notes: 09/06/19 15:38 . Venous Doppler tech patient unofficially negative for DVT.
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
--- NOTE | 2019-09-06 16:17 | RADIOLOGY REPORT (SQ) ---
EXAM DESCRIPTION: VENOUS UNILATERAL LOWER COMPLETED DATE/TIME: 09/06/2019 4:08 pm REASON FOR STUDY: RLE PAIN/SWELLING COMPARISON: None. TECHNIQUE: Dynamic and static deleon scale and color images acquired of the right leg venous system. S elected spectral images acquired with additional compression and augmentation maneuvers. The contrala teral common femoral vein and saphenofemoral junction were also imaged. Images stored on PACS. LIMITATIONS: None. FINDINGS: COMMON FEMORAL: Normal phasicity, compression and augmentation. No visualized echogenic ma terial on deleon scale. No defects on color images. FEMORAL: Normal compression and augmentation. No visualized echogenic material on deleon scale. No defe cts on color images. POPLITEAL: Normal compression, augmentation. No visualized echogenic material on deleon scale. No defec ts on color images. CALF VESSELS: Normal compression, augmentation. No visualized echogenic material on deleon scale. No de fects on color images. GSV and SSV: Normal compression, augmentation. No visualized echogenic material on deleon scale. No def ects on color images. ANY DEEP VENOUS INSUFFICIENCY: No. ANY EVIDENCE OF POPLITEAL CYST: No. OTHER: No other significant finding. CONTRALATERAL COMMON FEMORAL VEIN AND SAPHENOFEMORAL JUNCTION: Normal phasicity, compression and augmentation. No visualized echogenic material on deleon scale. No de fects on color images. IMPRESSION: NO EVIDENCE DVT OR SVT IN THE RIGHT LEG. TECHNICAL DOCUMENTATION: JOB ID: [id number] [employer]- All Rights Reserved Reading location - IP/workstation name: [email or web address]
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
[2019-09-06 18:05] VITALS: BP 126/76
== END 2019-09-06 18:08 | disposition home or self-care (01) ==
LOC: ER 13:26
DX: S43.402A Unspecified sprain of left shoulder joint, initial encounter (principal); S86.811A Strain of other muscle(s) and tendon(s) at lower leg level, right leg, initial encounter; M25.512 Pain in left shoulder; M54.2 Cervicalgia; M79.604 Pain in right leg; W19.XXXA Unspecified fall, initial encounter; Z79.899 Other long term (current) drug therapy; Z79.84 Long term (current) use of oral hypoglycemic drugs; Z79.82 Long term (current) use of aspirin; F17.200 Nicotine dependence, unspecified, uncomplicated; I10 Essential (primary) hypertension; E11.9 Type 2 diabetes mellitus without complications
CPT/HCPCS: 93971; 99284